=== PATIENT | male | born 1965 | race Caucasian/White ===

== ENCOUNTER 2019-06-18 13:33 | Inpatient (IN) | payer OTHER, SELFPAY ==
[2019-06-18] VITALS (9 sets, daily range): BP systolic 120–193; BP diastolic 82–118; PULSE 79–94; RESP 16–35; TEMP 36.3; O2SAT 98–100; BMI 25.9
--- NOTE | ~2019-06-18 | CT_ITS ---
EXAMINATION: CT brain wo con DATE: 06/22/2019 10:49 INDICATION: Altered mental status. TECHNIQUE: Computed tomography (CT) of the head was performed without intravenous contrast. Sagittal and coronal reconstructions were performed. The mA was adjusted according to patient size. Iterative reconstruction technique was employed. The dose-length product was 605.33 mGy-cm. COMPARISON: head CT dated 06/18/2019 FINDINGS: Small old lacunar infarcts at the left thalamus and left basal ganglia involving the head of the left caudate nucleus and anterior limb of the left internal capsule. No acute intracranial hemorrhage, ac [place] infarction or abnormal extra axial fluid collection. Ventricles are normal and symmetric. No mass /mass effect. Mild to moderate mucosal thickening throughout the paranasal sinuses most prominent in the bilateral ethmoid sinuses. The orbits and mastoid air cells are normal. IMPRESSION: 1. No acute intracranial process. 2. Unchanged old lacunar infarcts at the left thalamus and left basal ganglia. Reviewed, dictated and finalized at location A. ETING CONTENT SPECIALIST
--- NOTE | ~2019-06-18 | CT_ITS ---
EXAMINATION: CT brain wo con DATE: 06/18/2019 15:29 INDICATION: Altered mental status TECHNIQUE: Computed tomography (CT) of the head was performed without intravenous contrast. Sagittal and coronal reconstructions were performed. The mA was adjusted according to patient size. Iterative reconstruction technique was employed. The dose-length product was 605.33 mGy-cm. COMPARISON: None FINDINGS: Evaluation mildly limited at the skull base and posterior fossa due to some motion artifact. No acute intracranial hemorrhage, acute infarction or abnormal extra axial fluid collection. Old lacunar infa rcts in the left thalamus and basal ganglia involving the head of the left caudate nucleus and anteri or limb of the left internal capsule. Ventricles are normal and symmetric. No mass/mass effect. Mucos al thickening in the bilateral ethmoid sinuses. The orbits and mastoid air cells are normal. Intracra nial calcified cerebral atherosclerosis is noted. IMPRESSION: 1. No acute intracranial process. Evaluation mildly limited at the skull base and posterior fossa by some motion artifact. 2. Old lacunar infarcts at the left thalamus and left basal ganglia. Reviewed, dictated and finalized at location A. LINE TRUCK OPERATOR IMPRESSION: 1. No acute intracranial process. Evaluation mildly limited at the skull base a nd posterior fossa by some motion artifact. 2. Old lacunar infarcts at the left thalamus and left basal ganglia.
--- NOTE | ~2019-06-18 | US_ITS ---
EXAMINATION: US carotid duplex BI DATE: 06/19/2019 16:45 INDICATION: Altered mental status. Alcohol withdrawal. TECHNIQUE: Grayscale, color Doppler, and pulsed Doppler images of the cervical carotid arteries were obtained. The degree of vessel stenosis is placed in one of the following categories: normal, <50%, 5 0-69%, >=70% but less than near-occlusion, near-occlusion, or total occlusion. Note that percent sten osis relative to normal distal artery lumen diameter is indirectly measured from velocity measurement s as described by Ajay, et al. Radiology 2003; 229:340-346. Notes: Normal: Peak systolic velocity <125 centimeters/sec and no plaque <50%. Peak systolic velocity <125 ( EDV <40; ICA/CCA PSV ratio <2.0; used these factors only a tandem lesions or low cardiac output or co ntralateral disease) 50-69 %: PSV 125-230 (EDV 40-100; ratio 2-4) >= 70% but less than near occlusion: PSV greater than 230 (EDV > 100; ratio> 4.0) Near Occlusion: PSV that is variable; markedly narrowed lumen Occlusion: Absent flow on color/spectral Doppler and no lumen on bettencourt scale. COMPARISON: None. FINDINGS: RIGHT: The right common carotid artery (CCA) peak systolic velocity (PSV) is 75 cm/s. The right internal car otid artery (ICA) PSV is 141 cm/s. The right ICA end-diastolic velocity (EDV) is 32 cm/s. The right I CA/CCA PSV ratio is 1.9. The external carotid artery (ECA) PSV is 163 cm/s. There is antegrade flow i n the right vertebral artery. LEFT: The left CCA PSV is 122 cm/s. The left ICA PSV is 118 cm/s. The left ICA EDV is 24 cm/s. The left ICA /CCA PSV ratio is 1. The ECA PSV is 157 cm/s. There is antegrade flow in the left vertebral artery. IMPRESSION: 1. 50-69% stenosis in the right internal carotid artery by sonographic criteria. 2. Less than 50% stenosis in the left internal carotid artery by sonographic criteria. Reviewed, dictated and finalized at location A. DOCK OPERATOR IMPRESSION: 1. 50-69% stenosis in the right internal carotid artery by sonographic criteria . 2. Less than 50% stenosis in the left internal carotid artery by sonographic cr iteria.
--- NOTE | 2019-06-18 14:09 | ED.GENADULT ---
HPI - General Adult General Chief complaint: Altered Mental Status Stated complaint: AMS Time Seen by Provider: 06/18/19 13:43 Source: EMS and RN notes reviewed Mode of arrival: EMS Limitations: clinical condition History of Present Illness HPI narrative: A 54 y/o male presents to the ED via EMS from the [facility] d/t AMS. Per EMS, the pt had been in alf for the past 10 days but that 3 days ago the pt became nonverbal. They state that the pt has also been shaking more so they called EMS to have the pt evaluated. They report that the pt was responding to yes and no questions by shaking his head or nodding his head. They also note that the pt has a hx of substance abuse but is unsure of what substance. When the pt was asked any questions in the ED he just smiled and laughed. Onset (ago): day(s) (3) Associated symptoms: other (shaking more per EMS) Related Data Allergies Allergy/AdvReac Type Severity Reaction Status Date / Time No Known Allergies Allergy Verified 06/18/19 17:15 Review of Systems Review of Systems: All systems reviewed & are unremarkable except as noted in HPI and below ROS unobtainable: unobtainable due to mental status Neurologic: Reports tremor(s) (more per EMS) Psychiatric: Psychiatric: Reports other (has been nonverbal) [facility] Family History Family History (Updated 03/11/16 @ 23:21 by DOCTOR UNKNOWN) Father Hypertension Mother Patient's mother is in good health Sibling Patient's brother is in good health Social History Social History Alcohol intake: never Gender identity (if verbalized by the patient): Male Course Course Emergency Course: His work-up has been largely negative. His behavior is likely due to underlying psychopathology. I do not feel that I can fully rule out a medical cause for his condition, such as alcohol withdrawal. I will keep him for observation Consultations Consultation #1: Discussed case with Lisa (PA to Hospitalist). Accepts the pt. Date: 06/18/19 Time: 18:00 Vital Signs Vital signs: Vital Signs Temperature 36.3 C L 06/18/19 14:21 Pulse Rate 89 06/18/19 14:21 Respiratory Rate 16 06/18/19 14:21 Blood Pressure 178/110 H 06/18/19 14:21 Pulse Oximetry 98 06/18/19 14:21 Temperature 36.3 C L 06/18/19 14:21 Pulse Rate 88 06/18/19 18:00 Respiratory Rate 17 06/18/19 18:00 Blood Pressure 120/82 06/18/19 18:00 Pulse Oximetry 100 06/18/19 14:45 Medical Decision Making Vital Signs Vital Signs: Vital Signs Temperature 36.3 C L 06/18/19 14:21 Pulse Rate 89 06/18/19 14:21 Respiratory Rate 16 06/18/19 14:21 Blood Pressure 178/110 H 06/18/19 14:21 Pulse Oximetry 98 06/18/19 14:21 Temperature 36.3 C L 06/18/19 14:21 Pulse Rate 88 06/18/19 18:00 Respiratory Rate 17 06/18/19 18:00 Blood Pressure 120/82 06/18/19 18:00 Pulse Oximetry 100 06/18/19 14:45 Lab Data Result diagrams: 06/18/19 14:25 06/18/19 14:25 Labs: Lab Results 06/18/19 06/18/19 06/18/19 Range/Units 14:24 14:25 14:25 WBC 7.6 (4.5-10.0) K/mm3 RBC 5.96 (4.6-6.20) M/mm3 Hgb 16.5 (14.0-18.0) g/dL Hct 50.6 (42.0-52.0) % MCV 84.9 (80-100) fl MCH 27.7 (26-34) pg MCHC 32.6 (32-36) g/dl RDW 14.8 H (11.5-14.5) % Plt Count 211 (150-375) k/mm3 MPV 12.1 H (7.4-10.4) fl Immature Gran % (Auto) 0.3 (0-0.5) % Neut % (Auto) 71.5 (45.5-73.1) % Lymph % (Auto) 18.7 (18.3-44.2) % [place] % (Auto) 6.3 (2.6-8.5) % Eos % (Auto) 2.0 (0-4.4) % Baso % (Auto) 1.2 (0.2-1.2) % Lymph # (Auto) 1.43 (0.9-3.2) K/mm3 [place] # (Auto) 0.5 (0.1-0.6) K/mm3 Eos # (Auto) 0.2 (0-0.3) K/mm3 Baso # (Auto) 0.1 (0.0-0.1) K/mm3 Abs Immat Gran (auto) 0.02 (0.00-0.031) K/mm3 Absolute Neuts (auto) 5.5 (1.3-6.7) K/mm3 Absolute Nucleated RBC 0.0 (0.0-0.012) K/mm3 Nucleated RBC % 0.0 (0.0-0.2) % Sodium 140 (137-145) mmol
[2019-06-18 14:33] LABS: Basophils Absolute Auto 0.1 K/mm3 (0.0-0.1); Basophils Percent Auto 1.2 % (0.2-1.2); Eosinophils Absolute Auto 0.2 K/mm3 (0-0.3); Hematocrit 50.6 % (42.0-52.0); Hemoglobin 16.5 g/dL (14.0-18.0); Immature Granulocyte Absolute 0.02 K/mm3 (0.00-0.031); Immature Granulocyte Percent A 0.3 % (0-0.5); Lymphocytes Absolute Auto 1.43 K/mm3 (0.9-3.2); Lymphocytes Percent Auto 18.7 % (18.3-44.2); Mean Corpuscular HGB Conc 32.6 g/dl (32-36); Mean Corpuscular Hemoglobin 27.7 pg (26-34); Mean Corpuscular Volume 84.9 fl (80-100); Mean Platelet Volume 12.1 fl (7.4-10.4); Monocytes Absolute Auto 0.5 K/mm3 (0.1-0.6); Monocytes Percent Auto 6.3 % (2.6-8.5); Neutrophils Absolute Auto 5.5 K/mm3 (1.3-6.7); Neutrophils Percent Auto 71.5 % (45.5-73.1); Platelet Count Result 211 k/mm3 (150-375); Red Blood Count 5.96 M/mm3 (4.6-6.20); Red Cell Distribution Width 14.8 % (11.5-14.5); White Blood Count 7.6 K/mm3 (4.5-10.0)
[2019-06-18 14:43] LABS: Ammonia < 9 umol/L (9-30)
[2019-06-18 14:45] LABS: Ethanol < 10 mg/dL (<10)
[2019-06-18 14:48] LABS: Alanine Aminotransferase 31 U/L (4-50); Albumin Level 4.4 g/dL (3.5-5.1); Alkaline Phosphatase 68 U/L (38-126); Aspartate Amino Transferase 42 U/L (17-59); Bilirubin,Total 0.7 mg/dL (0.2-1.3); Blood Urea Nitrogen 25 mg/dL (9-20); Calcium 9.4 mg/dL (8.4-10.2); Carbon Dioxide 27 mmol/L (22-30); Chloride 104 mmol/L (98-107); Estimated Glomerular Filt Rate > 60; Glucose 91 mg/dL (75-110); Potassium 3.8 mmol/L (3.4-5.0); Sodium 140 mmol/L (137-145)
[2019-06-18] MEDS: LORAZEPAM INJ 2 MG/ML VIAL 1 MG IM (15:59)
--- NOTE | 2019-06-18 16:31 | ECG_ITS ---
Measurements Intervals [place] Rate: 92 P: 58 MI: 120 QRS: 12 QRSD: 94 T: 145 QT: 407 QTc: 504 Interpretive Statements SINUS RHYTHM POSSIBLE LEFT ATRIAL ENLARGEMENT LEFT VENTRICULAR HYPERTROPHY AND ST-T CHANGE ST-T WAVE ABNORMALITY IN ANTEROLAT/LAT LEADS- CONSIDER ISCHEMIA BASELINE ARTIFACT- I, II, AVR, AVL, AVF, V2 ABNORMAL ECG Electronically Signed On 06-18-2019 20:45:48 STRAW HAT BRIM RAISER OPERATOR by Thomas Easley D.O.
[2019-06-18] MEDS: SODIUM CHLORIDE 0.9% IV 2,000 ML 999 ML IV CONT (16:57)
[2019-06-18] MEDS: LORAZEPAM INJ 2 MG/ML VIAL 1 MG IV PUSH (16:59)
[2019-06-18] MEDS: HALOPERIDOL LACTATE 5 MG/ML VIAL IM (17:02)
[2019-06-18 17:24] LABS: Add Urine Microscopic? YES; Appearance Urine Clear (Clear); Bacteria Urine Trace /hpf; Bilirubin Urine Negative (Negative); Blood Urine 3+ (Negative); Color Urine Yellow (Yellow); Glucose Urine UA Negative (Negative); Ketones Urine 1+ mg/dL (Negative); Leukocyte Esterase Ur Negative LEU/UL (NEGATIVE); Mucus Urine Rare /lpf; Nitrate Urine Negative (Negative); Protein Urine Negative (Negative); Specific Grav Ur 1.023 (1.001-1.035); Squamous Epithelial Cell Urine Rare /hpf (Few); Urobilinogen Urine Negative mg/dL (<2.0); WBC Urine 0-3
[2019-06-18 17:36] LABS: Amphetamine Screen Urine Negative (Negative); Barbiturate Screen Urine Negative (Negative); Benzodiazepines Screen Urine Negative (Negative); Cannabinoid Screen Urine Negative (Negative); Cocaine Screen Urine Negative (Negative); Methadone Screen Urine Negative (Negative); Opiate Screen Urine Negative (Negative); Phencyclidine Screen Urine Negative (Negative)
[2019-06-19] VITALS (13 sets, daily range): BP systolic 157–176; BP diastolic 75–94; PULSE 82–101; RESP 16–18; TEMP 36.3–37; O2SAT 96–98
[2019-06-19] MEDS: LACTATED RINGERS 1,000 ML 125 ML IV CONT ×4 (02:32→21:04)
[2019-06-19] MEDS: METOPROLOL TARTRATE INJ 5 MG/5 ML VIAL IV PUSH ×2 (08:38→23:25)
[2019-06-19] MEDS: LORAZEPAM INJ 2 MG/ML VIAL 1 MG IV PUSH ×3 (12:01→23:21)
--- NOTE | 2019-06-19 13:40 | PC.NURSE ---
Care Coordination provided us with two numbers for possible contact; mother and son. I called the mother @ [phone] to possibly obtain consent for a MRI. She stated that she does not have contact with him, but could provide me with a little information if needed. We did not obtain consent for MRI; will try to call the son. She stated that he may have a still, but does not know if they are yet or not. She may be someone who we can contact? The mother said that he has been dealing with mental issues for quite sometime now, but doesn't recall how long. The patient has suffered from two family members losses in 2011; father and brother. The patient does have 2 children; son and daughter, whom is not in his life because the patient tried to take her child recently. This is the information that I could obtain from the mother. She would like to be contacted if something were to happen to her son. Mother= Anu Greco [phone]
--- NOTE | 2019-06-19 14:44 | PM.IMHP ---
H&P: HPI History of Present Illness Chief complaint: ALTER MENTAL STATUS,POSSIBLE ALCOHOL WITHDRAWL Narrative: Bala Greco is a 54 year old male -patient has been admitted to the hospital from the [facility]. patient has been there for 10 days, they noticed, patient had a problem with his speech for 3 days ago. Currently patient is unable to speak, non verbal, and has a weakness on his right arm and right leg. Difficult to obtain a history. Patient does communicate by nodding. Some remote history of substance abuse and alcoholism. Patient did have a CT scan in the emergency room which showed some old lacunar infarct. Awaiting MRI of brain and neurology consultation. Review of Systems Review of Systems: All systems reviewed & are unremarkable except as noted in HPI and below ROS unobtainable: unobtainable due to mental status Neurologic: Reports Abnormal speech present and Reports focal weakness Psychiatric: Comments: History of alcoholism and drug abuse [facility] Family History Family History Father Hypertension Mother Patient's mother is in good health Sibling Patient's brother is in good health Social History Social History Smoking status: Unknown if ever smoked Alcohol intake: unknown Substance use: unknown Substance use type: other Gender identity (if verbalized by the patient): Male Spiritual care concerns: No Agree to blood products: No Meds Home Medications and Allergies Home Medications Medication Instructions Recorded Confirmed Type Unable to Obtain Home Medications 06/18/19 06/18/19 History Allergies Allergy/AdvReac Type Severity Reaction Status Date / Time No Known Allergies Allergy Verified 06/18/19 17:15 Vital Signs Vital Signs - 24 hr 06/18/19 14:45 06/18/19 15:45 06/18/19 16:45 Temperature Pulse Rate 86 83 94 Pulse Rate [Left Radial] Respiratory Rate 16 35 H 23 H Blood Pressure 193/118 H 184/109 H 179/117 H Pulse Oximetry 100 06/18/19 18:00 06/18/19 19:08 06/18/19 19:42 Temperature Pulse Rate 88 86 94 Pulse Rate [Left Radial] Respiratory Rate 17 16 16 Blood Pressure 120/82 179/99 H 145/93 H Pulse Oximetry 06/18/19 20:00 06/18/19 20:07 06/19/19 00:00 Temperature Pulse Rate 79 92 Pulse Rate [Left Radial] Respiratory Rate Blood Pressure 183/113 H Pulse Oximetry 06/19/19 04:00 06/19/19 08:00 06/19/19 08:35 Temperature 36.3 C L Pulse Rate 91 90 95 Pulse Rate [Left Radial] 90 Respiratory Rate 18 Blood Pressure 176/91 H Pulse Oximetry 97 06/19/19 08:38 06/19/19 10:03 Temperature Pulse Rate 90 Pulse Rate [Left Radial] Respiratory Rate Blood Pressure 165/86 H Pulse Oximetry Exam Const: Nutritional Appearance: well nourished Other: Unkempt HENMT: Head: normocephalic Eyes: General: appearance normal, both eyes and all related structures Pupils: PERRL Neck: Neck: supple Chest: Chest palpation & inspection: normal inspection of the chest Resp: Effort & Inspection: normal respiratory effort Auscultation: clear to auscultation bilaterally Cardio: Jugular venous distension: no JVD Rhythm: regular rhythm Heart sounds: S1 normal and S2 normal GI: Inspection: normal to inspection Palpation (GI): No abdominal tenderness, Yes soft and No tender Auscultation: normal bowel sounds : General: Yes no CVA tenderness Back/Spine/Pelvis: Back: no CVA tenderness Skin: General skin exam: normal color and dry skin Neuro: Cranial nerves: Yes PERRL Cognition (Neuro): abnormal cognition Speech: speech abnormal Motor exam (neuro): strength abnormal Other: 3/5 weakness on the right arm and right leg Extrem: General: normal to inspection Psych: Appearance: well kempt and disheveled Speech and movement: mute Affect: anxious affect and blun
--- NOTE | 2019-06-19 23:10 | PC.NURSE ---
Bed alarming. Getting out of bed unassisted. Agitated and suspicious of all nursing staff and surroundings. Unable to reorient. Stated, Get a gun, I will kill myself. Just kill me. Hitting mattress and side rail. Pulling at hair. Time spent at bedside.
--- NOTE | 2019-06-19 23:50 | PC.NURSE ---
Roberta, Commercial Door Installer, notified per telephone of order to transfer to ICU.
[2019-06-20] VITALS (15 sets, daily range): BP systolic 144–200; BP diastolic 82–109; PULSE 64–92; RESP 16–20; TEMP 36.8–37; O2SAT 98–100
--- NOTE | 2019-06-20 00:54 | PC.NURSE ---
Transferred to ICU 4 per hospital bed accompanied by 3 Nurses and 1 STRAPPING MACHINE OPERATOR.
--- NOTE | 2019-06-20 01:00 | PC.NURSE ---
PATIENT TRANSFERRED TO ICU 4 FOR SI PRECAUTIONS, BECAME VERY AGGRESSIVE WHILE TRYING TO APPLY TELE MONTIOR. CODE PURPLE CALLED, AND 5MG HALDOL IVP GIVEN. PATIENT AGREED TO SIT AT BEDSIDE TO EAT SOME FOOD, BUT WILL NOT ALLOW MONTIOR AT THIS TIME. NURSE AND SITTER IN ROOM TO MONITOR
[2019-06-20] MEDS: HALOPERIDOL LACTATE 5 MG/ML VIAL IV PUSH (01:15)
--- NOTE | 2019-06-20 01:17 | PC.NURSE ---
This patient, Bala Greco, was received from [ [phone]] on 06/20/19 at 0050. Personal belongings list checked and signed. Patient/family oriented to unit policies and routines
[2019-06-20] MEDS: ACETAMINOPHEN 325 MG TABLET 650 MG PO (02:20)
--- NOTE | 2019-06-20 04:20 | PC.NURSE ---
Nikita called RN to room, patient thrashing and aggitated and IV pulled out. Patient wants personal belongings at his bedside, mad at the RN states You are a bitch and a cunt. Patient wanted to use urinal, gave him the urinal and then patient did not want nurse to empty urine. Patient very distrustful. Patient will not let RN try for a new IV at this time, patient went back to sleep. Dr Coronado aware.
[2019-06-20] MEDS: HALOPERIDOL LACTATE 5 MG/ML VIAL 10 MG IM (06:04)
[2019-06-20] MEDS: LACTATED RINGERS 1,000 ML 125 ML IV CONT ×2 (07:29→15:18)
--- NOTE | 2019-06-20 11:10 | PCSTNOTE ---
Patient unavailable for evaluation per nursing; patient was agitated and combative during the night. ST will attempt at further date to complete evaluation.
--- NOTE | 2019-06-20 11:54 | PCPTNOTE ---
Spoke w/ Dr Velasquez regarding pt's change in medical status and transfer to ICU. She stated to continue therapy.
[2019-06-20 12:25] LABS: Cholesterol 117 mg/dL (0-200); HDL Direct 29 mg/dL; Triglycerides 96 mg/dL (<150)
[2019-06-20 12:36] LABS: LDL Cholesterol Direct 75 mg/dL
[2019-06-20] MEDS: ATORVASTATIN 40 MG TABLET PO (12:51)
[2019-06-20] MEDS: ASPIRIN 325 MG TABLET BY MOUTH (12:51)
--- NOTE | 2019-06-20 14:16 | PCPTNOTE ---
Attempted PT/OT evals. Pt refused therapy. States he does not want any therapy.
--- NOTE | 2019-06-20 15:11 | PM.IMPN ---
Progress Note: A&P Assessment and Plan (1) Altered mental status: Qualifiers: Altered mental status type: unspecified Qualified Code(s): R41.82 - Altered mental status, unspecified Code(s): R41.82 - Altered mental status, unspecified Status: Acute Assessment and Plan: Patient admitted from [facility], for disturbance in speech for the past 3 days. Patient is unable to hold any conversation. possible stroke, patient had CT, awaiting full stroke workup, MRI and echocardiogram ultrasound of carotids. patient also to have neurology consultation, patient is started on full-dose aspirin. Pt unable to do MRI. some mention of suicidal intention transferred to ICU last night (2) Hemiparesis: Code(s): G81.90 - Hemiplegia, unspecified affecting unspecified side Status: Resolved Assessment and Plan: Much improved appears to have no deficit anymore (3) Mute: Code(s): R47.01 - Aphasia Status: Acute Assessment and Plan: Patient have to speech and swallow assessment. patient is tolerating a diet at the moment without any problems of choking, DC iv fluids, speech is still impaired awaiting full spech evaluation (4) History of alcohol abuse: Code(s): F10.11 - Alcohol abuse, in remission Status: Acute Assessment and Plan: Chronic history of alcoholism. watch for any withdrawal patient have IV Ativan for agitation p.r.n. (5) History of substance abuse: Code(s): F19.11 - Other psychoactive substance abuse, in remission Status: Acute Assessment and Plan: Patient's urine drug screen is negative Subjective Interval history: Pt admitted from [facility]. Pt has been having problems with speech for 4 days now, appears to have some expressive dysphasia unable to answer questions, prefers short replies. pt unable to have MRI brain, Pt had CT brain. Pt weakness in arm and leg appears much improved. Speech still appears to be a concern. Pt seeing neurology and speech theraphy. Transfered to ICU due to some suicidal intention- last night Review of Systems Review of Systems: All systems reviewed & are unremarkable except as noted in HPI and below ROS unobtainable: unobtainable due to mental status Neurologic: Reports Abnormal speech present and Reports focal weakness Exam Narrative: Exam Narrative: Unkempt Objective Data Vital Signs Vital Signs: Vital Signs - 24 hr 06/19/19 16:00 06/19/19 17:08 06/19/19 20:00 Temperature Pulse Rate 82 85 Pulse Rate [Left Radial] 82 85 Respiratory Rate Blood Pressure 157/75 H Pulse Oximetry 06/19/19 22:00 06/19/19 23:25 06/20/19 00:00 Temperature 37.0 C Pulse Rate 88 82 67 Pulse Rate [Left Radial] Respiratory Rate 16 Blood Pressure 164/94 H Pulse Oximetry 96 06/20/19 01:27 06/20/19 01:40 06/20/19 02:00 Temperature 36.8 C Pulse Rate 74 72 74 Pulse Rate [Left Radial] Respiratory Rate 20 20 20 Blood Pressure 166/98 H 158/92 H Pulse Oximetry 100 100 06/20/19 04:00 06/20/19 04:16 06/20/19 04:17 Temperature 37.0 C Pulse Rate 86 70 Pulse Rate [Left Radial] 70 Respiratory Rate 17 Blood Pressure 144/82 H Pulse Oximetry 06/20/19 06:00 06/20/19 08:00 06/20/19 10:00 Temperature 36.9 C Pulse Rate 65 65 64 Pulse Rate [Left Radial] Respiratory Rate 18 17 17 Blood Pressure 156/90 H 179/104 H 144/99 H Pulse Oximetry 06/20/19 12:00 06/20/19 14:00 Temperature Pulse Rate 70 92 Pulse Rate [Left Radial] 70 Respiratory Rate Blood Pressure 154/101 H Pulse Oximetry Intake/Output Intake/Output: Intake & Output 06/17/19 06/18/19 06/19/19 06/20/19 23:59 23:59 23:59 23:59 Intake Total 1999 3960 2720 Output Total 700 2750 Balance 1999 3260 -30 Meds/Results Medications: Active Medications Generic Name Dose Route Start Last Admin Trade Name Freq PRN Reason Stop Dose A
--- NOTE | 2019-06-20 15:21 | CONS_ITS ---
DATE OF CONSULTATION: Patient of Dr. Verna Livingston. HISTORY: This 54 years old has been admitted to [facility] through the emergency room for the complaint of change in the mental status with the possibility of the alcohol withdrawal, on transfer from the [facility] [place] where he had been for the last 10 days, but reportedly, he had problem with speech. When the patient was initially seen by the hospital, he was unable to speak, nonverbal, and was noted to have weakness on right arm and right lower extremity and was communicating only by nodding; remote history of substance abuse and alcohol, and a CT scan in the emergency room revealing only old lacunar infarct. No other particular history was available. He was not taking any specific medication. On initial evaluation, he was afebrile with pulse of 86, respirations 16, blood pressure 193/118, which subsequently gradually came down to 179/117. He was notedly afebrile. Head was normocephalic. Ears, nose, throat examination was normal. Neck was supple with no meningeal signs. Heart was regular with no murmur. Lungs were clear to auscultation. Abdomen was soft with no organomegaly. Neurologically, he was noted to have 3/5 weakness in the right upper extremity. Subsequent evaluation included the BMP, which was normal so as the hepatic enzymes, UA. He was admitted to the hospital with the diagnosis of change in the mental status and hemiplegia on the right side, in addition to the history of alcohol abuse, chronic history of alcoholism, substance abuse. Initial evaluation included CBC with WBC 7.6, hemoglobin 16.5, and the platelet count of 211. Sodium 140, potassium 3.8, chloride 104, CO2 of 27, BUN 25, creatinine 1.0, GFR more than 60, glucose 91, calcium 9.4, total bilirubin 0.7, AST 42, ALT 31, alkaline phos 68, serum ammonia level less than 9, total protein 8, albumin 4.4. TSH 1.62. UA completely normal, 1+ ketone, 3+ blood, and 3 to 5 RBCs. Toxicology screen was negative for the opiates, methadone, barbiturates, phencyclidine, amphetamine, benzodiazepine, cocaine, cannabinoid, and alcohol level was were less than 10. Initial head CT scan was negative for the bleed. There were old lacunar infarcts in the left thalamus and left basal ganglia. The Doppler study of the carotid was 50% to 69% stenosis in the right internal carotid artery by sonographic and less than 50% on the left. On examination today, he was arousable, but sleeping, not cooperating with the examination. Pupils were round, regular. Glaser of vision could not be reliably checked. Face symmetrical. He was able to move both upper extremities. At this stage, the plan is to obtain the MRI of the brain and repeat examination, further instructions accordingly, and also obtain the CTA. Hernando I MT: Efrem
[2019-06-20] MEDS: METOPROLOL TARTRATE INJ 5 MG/5 ML VIAL IV PUSH (19:57)
[2019-06-20] MEDS: hydrALAZINE HCL 20 MG/ML VIAL 10 MG IV PUSH (21:26)
[2019-06-20] MEDS: LORAZEPAM INJ 2 MG/ML VIAL 1 MG IV PUSH (22:58)
[2019-06-21] VITALS (10 sets, daily range): BP systolic 126–199; BP diastolic 84–118; PULSE 84–91; RESP 16–21; TEMP 36.6–36.8; O2SAT 97–100
[2019-06-21 07:59] LABS: Hematocrit 47.4 % (42.0-52.0); Hemoglobin 15.7 g/dL (14.0-18.0); Mean Corpuscular HGB Conc 33.1 g/dl (32-36); Mean Corpuscular Hemoglobin 27.8 pg (26-34); Mean Platelet Volume 12.3 fl (7.4-10.4); Platelet Count Result 181 k/mm3 (150-375); Red Blood Count 5.64 M/mm3 (4.6-6.20); Red Cell Distribution Width 14.8 % (11.5-14.5); White Blood Count 7.9 K/mm3 (4.5-10.0)
[2019-06-21 08:29] LABS: Blood Urea Nitrogen 12 mg/dL (9-20); Calcium 8.6 mg/dL (8.4-10.2); Carbon Dioxide 27 mmol/L (22-30); Chloride 106 mmol/L (98-107); Estimated CRCL calculation 76 ml/min; Estimated Glomerular Filt Rate > 60; Glucose 95 mg/dL (75-110); Potassium 3.6 mmol/L (3.4-5.0); Sodium 140 mmol/L (137-145)
--- NOTE | 2019-06-21 09:17 | PCSTNOTE ---
Attempted to see pt for a communication evaluation. RN stated that pt is not able at this time as he is being uncooperative. RN stated that pt is appearing to swallow without difficulty. ST will attempt again if possible tomorrow 06-22-19.
--- NOTE | 2019-06-21 15:28 | PM.IMPN ---
Progress Note: A&P Assessment and Plan (1) Altered mental status: Qualifiers: Altered mental status type: unspecified Qualified Code(s): R41.82 - Altered mental status, unspecified Code(s): R41.82 - Altered mental status, unspecified Status: Acute Assessment and Plan: Patient admitted from [facility], for disturbance in speech for the past 3 days. Patient is unable to hold any conversation. possible stroke, patient had CT, awaiting full stroke workup, MRI and echocardiogram ultrasound of carotids. patient also had neurology consultation, patient is started on full-dose aspirin. Pt unable to do MRI as checklist is difficult to complete. some mention of suicidal and agitation intention transferred to ICU 2 days ago. patient have CTA of brain awaiting results. once medically stable can have crisis team to evaluate patient. (2) Hemiparesis: Code(s): G81.90 - Hemiplegia, unspecified affecting unspecified side Status: Resolved Assessment and Plan: Much improved appears to have no deficit anymore (3) Mute: Code(s): R47.01 - Aphasia Status: Acute Assessment and Plan: Patient have to speech and swallow assessment. patient is tolerating a diet at the moment without any problems of choking, DC iv fluids, speech is still impaired awaiting full spech evaluation (4) History of alcohol abuse: Code(s): F10.11 - Alcohol abuse, in remission Status: Acute Assessment and Plan: Chronic history of alcoholism. watch for any withdrawal patient have IV Ativan for agitation p.r.n. (5) History of substance abuse: Code(s): F19.11 - Other psychoactive substance abuse, in remission Status: Acute Assessment and Plan: Patient's urine drug screen is negative (6) Elevated blood pressure reading: Code(s): R03.0 - Elevated blood-pressure reading, without diagnosis of hypertension Status: Acute Assessment and Plan: Patient to start on blood pressure medication. patient does not have any family. unable to give a good history. unsure if he has a history of hypertension. but will start a antihypertensive as blood pressure is 160/114 Subjective Interval history: Pt admitted from [facility]. Pt has been having problems with speech for 4 days now, appears to have some expressive dysphasia unable to answer questions, prefers short replies. pt unable to have MRI brain, Pt had CT brain. Pt weakness in arm and leg appears much improved. Speech still appears to be a concern. Pt seeing neurology and speech theraphy. Transfered to ICU due to some suicidal intention- last night. patient still mumbling. CTA ordered as per Neurology. otherwise no complaints from the patient. Patient's blood pressure is running very high. Patient have blood pressure control today. Once medically stable can have crisis come and see patient. Review of Systems Review of Systems: All systems reviewed & are unremarkable except as noted in HPI and below ROS unobtainable: unobtainable due to mental status Neurologic: Reports Abnormal speech present Exam Narrative: Exam Narrative: Unkempt Const: Nutritional Appearance: well nourished Other: Unkempt HENMT: Head: normocephalic Other: Unkempt Eyes: General: appearance normal, both eyes and all related structures Pupils: PERRL Chest: Chest palpation & inspection: normal inspection of the chest Resp: Effort & Inspection: normal respiratory effort Auscultation: clear to auscultation bilaterally Cardio: Rhythm: regular rhythm Heart sounds: S1 normal and S2 normal GI: Inspection: normal to inspection Palpation (GI): No abdominal tenderness, Yes soft and No tender Auscultation: normal bowel sounds Skin: General skin exam: normal color and dry skin Neuro: Cranial nerves: Yes PERRL Cognition (Neuro): abnormal cognition Speech: speech abnormal Motor exam (neuro): s
[2019-06-21] MEDS: METOPROLOL TARTRATE INJ 5 MG/5 ML VIAL IV PUSH (20:33)
[2019-06-21] MEDS: LORAZEPAM INJ 2 MG/ML VIAL 1 MG IV PUSH (20:34)
[2019-06-21] MEDS: HALOPERIDOL LACTATE 5 MG/ML VIAL 10 MG IM (23:16)
[2019-06-22] VITALS: PULSE 84
[2019-06-22] MEDS: LORAZEPAM INJ 2 MG/ML VIAL 1 MG IV PUSH ×3 (01:22→23:52)
[2019-06-22 04:00] VITALS: PULSE 82
[2019-06-22 08:00] VITALS: BP 180/112; PULSE 88; RESP 18; TEMP 36.8; O2SAT 97
[2019-06-22] MEDS: ATORVASTATIN 40 MG TABLET PO (08:07)
[2019-06-22] MEDS: ASPIRIN 325 MG TABLET BY MOUTH (08:07)
--- NOTE | 2019-06-22 09:16 | PM.IMPN ---
Progress Note: A&P Assessment and Plan (1) Altered mental status: Qualifiers: Altered mental status type: unspecified Qualified Code(s): R41.82 - Altered mental status, unspecified Code(s): R41.82 - Altered mental status, unspecified Status: Acute Assessment and Plan: Exact baseline status unknown. Patient not fully oriented at this time. Neurology consulted and appreciate input. 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 Have been attempting to get MRI as well as CTA neck but unable given unreliable information from patient. Instead, repeat CT scan ordered today with no changes. Evaluated by speech therapy today with no specific difficulties noted. He has been tolerating diet. Agitated at times. Still requiring IV lorazepam as well as Haldol as needed. Dose of IM Zyprexa given this evening. Will continue to monitor. (2) Hypertension: Qualifiers: Hypertension type: essential hypertension Qualified Code(s): I10 - Essential (primary) hypertension Code(s): I10 - Essential (primary) hypertension Status: Acute Assessment and Plan: Past medical history unreliable but all blood pressures are elevated on review on 06/22/2019. Current on oral amlodipine and IV metoprolol q.6h hours. Will increase amlodipine. Will continue to monitor. Hopefully, can transition to oral metoprolol in a.m.. Continue IV hydralazine as needed. (3) Hemiparesis: Qualifiers: Hemiparesis etiology: unspecified Hemiparesis laterality: unspecified Qualified Code(s): G81.90 - Hemiplegia, unspecified affecting unspecified side Code(s): G81.90 - Hemiplegia, unspecified affecting unspecified side Status: Resolved Assessment and Plan: Noted to have weakness in the right arm and right leg on presentation. Moving all extremities equal at this time. CT brain x2 with no acute changes. (4) History of alcohol abuse: Code(s): F10.11 - Alcohol abuse, in remission Status: Acute Assessment and Plan: Reported history but had been at [facility] long-term for 10 days prior to presentation. No sign of withdrawal at this time. Will stop CIWA. (5) History of substance abuse: Code(s): F19.11 - Other psychoactive substance abuse, in remission Status: Acute Assessment and Plan: Reported history. Toxicology screen negative on arrival. (6) DVT prophylaxis: Code(s): Z29.9 - Encounter for prophylactic measures, unspecified Status: Acute Assessment and Plan: SCDs. Time Spent With Patient Time with patient: 15 - 25 minutes Subjective Interval history: Date of Service: 06/22/2019. Admitted with altered mental status. Patient resting but easily aroused. Denies headaches. No chest pain or palpitations. No shortness of breath. No abdominal pain. No nausea or vomiting. Denies suicidal or homicidal ideation. Review of Systems Constitutional: Constitutional: Denies fever(s) ENT: Reports system reviewed and no additional complaints, except as documented Cardiovascular: Cardiovascular: Denies chest pain and Denies palpitations Respiratory: Respiratory: Denies cough and Denies dyspnea Gastrointestinal: Gastrointestinal: Denies abdominal pain, Denies nausea and Denies vomiting Musculoskeletal: Musculoskeletal: Denies back pain Neurologic: Denies headache(s) Psychiatric: Psychiatric: Reports confusion Exam Const: General: no acute distress HENMT: Mouth: Yes moist mucous membranes Neck: Neck: supple Lymphatic: lymphadenopathy not noted Resp: Auscultation: clear to auscultation bilaterally, no rales and no wheezes Cardio: Rate: regular rate Rhythm: regular rhythm GI: Inspection: non-distended Palpation (GI): Yes soft and No tender Auscultation: normal bowel sounds Skin: Other: Multiple tattoos Extrem: General: no edema Other: Or
--- NOTE | 2019-06-22 09:50 | PC.NURSE ---
Patient more alert this morning upon examination and medication pass. Attempted to perform screenings and consent for MRI and CTA, upon doing said screenings patient became less cooperative and unreliable in his answers. Dr. Livingston, MRI, and CT notified of this. Dr. Livingston to adjust orders later today.
[2019-06-22] MEDS: AMLODIPINE BESYLATE 5 MG TABLET PO (10:10)
[2019-06-22 15:35] VITALS: BP 154/110; PULSE 90; RESP 16; TEMP 36.8
[2019-06-22 15:39] VITALS: PULSE 80
[2019-06-22] MEDS: hydrALAZINE HCL 20 MG/ML VIAL 10 MG IV PUSH (15:55)
[2019-06-22] MEDS: HALOPERIDOL LACTATE 5 MG/ML VIAL 10 MG IM (17:00)
[2019-06-22 20:00] VITALS: PULSE 80; RESP 20; O2SAT 99
--- NOTE | 2019-06-22 21:56 | PM.EVENT ---
Event Note Event Note: CODE PURPLE NOTE This is a 54 year old male who is currently being treated for acute Encephalopathy and tonight suddenly got out of bed and began wandering out of the ICU. The patient walked to the IMU where a Code Karon was called. The patient required to be redirected back to his room multiple times and appeared uncooperative multiple times. Zyprexa IM was ordered.
[2019-06-22] MEDS: OLANZapine 10 MG INJ VIAL IM (22:12)
--- NOTE | 2019-06-22 22:38 | PC.NURSE ---
At 2129, patient became agitated and walked out of the ICU with this RN and patient tech following him. Refuses to return to room. Patient ambulated to [facility] and a jaylon cortes was called. Security, nursing refractory products supervisor Bria Rosenthal and Dr. Millan responded along with several RNs. Patient eventually walked back to his ICU room. Zyprexa 10mg IM given for agitation. Advised patient to remain in bed as the Zyprexa might cause dizziness and fall risk. Sitter remains at bedside.
--- NOTE | 2019-06-22 23:54 | PC.NURSE ---
Patient again agitated and attempting to leave the ICU. Sarita cortes called with response from security, specimen technician, house keeping and nursing line supervisor. IV to left hand is occluded. Bria Rosenthal started a new IV to left forearm without difficulty. Ativan 1mg IVP given for agitation.
[2019-06-23] VITALS (11 sets, daily range): BP systolic 104–162; BP diastolic 71–100; PULSE 64–96; RESP 12–22; TEMP 35.9–37.1; O2SAT 94–100
--- NOTE | 2019-06-23 01:57 | PC.NURSE ---
0100 Patient again walking out of the room wanting to leave. Dr. Millan notified, orders for a Precedex drip. Monty Burgos contacted Dr. Vail for ICU transfer.
--- NOTE | 2019-06-23 01:59 | PC.NURSE ---
0130 Precedex bolus and drip started. Patient is currently sleeping. Placed back on the monitor with continuous pulse ox.
[2019-06-23 06:28] LABS: Hematocrit 45.1 % (42.0-52.0); Hemoglobin 14.7 g/dL (14.0-18.0); Mean Corpuscular HGB Conc 32.6 g/dl (32-36); Mean Corpuscular Hemoglobin 27.5 pg (26-34); Mean Corpuscular Volume 84.3 fl (80-100); Mean Platelet Volume 11.8 fl (7.4-10.4); Platelet Count Result 181 k/mm3 (150-375); Red Blood Count 5.35 M/mm3 (4.6-6.20); Red Cell Distribution Width 14.9 % (11.5-14.5); White Blood Count 7.9 K/mm3 (4.5-10.0)
[2019-06-23 06:43] LABS: Blood Urea Nitrogen 16 mg/dL (9-20); Calcium 8.7 mg/dL (8.4-10.2); Carbon Dioxide 25 mmol/L (22-30); Chloride 105 mmol/L (98-107); Estimated CRCL calculation 68 ml/min; Estimated Glomerular Filt Rate > 60; Glucose 90 mg/dL (75-110); Magnesium 2.1 mg/dL (1.6-2.3); Potassium 3.4 mmol/L (3.4-5.0); Sodium 140 mmol/L (137-145)
--- NOTE | 2019-06-23 08:22 | PM.IMPN ---
Progress Note: A&P Assessment and Plan (1) Suicidal ideation: Code(s): R45.851 - Suicidal ideations Status: Acute Assessment and Plan: Patient transferred ICU very early on 06/20/19 after issues just before midnight on 06/19/19 during which time he told nurse Get a gun, I will kill myself. Just kill me. . Now denies suicidal thoughts having denied to me yesterday and today. Medically stable. Will transfer to medical floor status once again. Continue suicide precautions. Will need crisis evaluation. (2) Altered mental status: Qualifiers: Altered mental status type: unspecified Qualified Code(s): R41.82 - Altered mental status, unspecified Code(s): R41.82 - Altered mental status, unspecified Status: Acute Assessment and Plan: Exact baseline status unknown but appears to be at baseline now with patient able to get up on his own. Neurology consulted and appreciate input. 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 Attempted to get MRI as well as CTA neck but unable given unreliable information from patient. Instead, repeat CT scan completed on 06/22/2019 with no changes. Evaluated by speech therapy on 06/22/2019 with no specific difficulties noted. He has been tolerating diet. Still has IV lorazepam as well as Haldol available as needed. Will continue to monitor. (3) Hypertension: Qualifiers: Hypertension type: essential hypertension Qualified Code(s): I10 - Essential (primary) hypertension Code(s): I10 - Essential (primary) hypertension Status: Acute Assessment and Plan: Past medical history unreliable but feel most likely does have hypertension based on readings here. Blood pressure reviewed on 06/23/2019 better this morning but was sedated overnight. Other blood pressure readings have all been significantly elevated. Will continue amlodipine. Will transition from IV metoprolol to oral metoprolol. Will continue to monitor. IV hydralazine available as needed. Will adjust treatment as needed.. (4) Hemiparesis: Qualifiers: Hemiparesis etiology: unspecified Hemiparesis laterality: unspecified Qualified Code(s): G81.90 - Hemiplegia, unspecified affecting unspecified side Code(s): G81.90 - Hemiplegia, unspecified affecting unspecified side Status: Resolved Assessment and Plan: Noted to have weakness in the right arm and right leg on presentation. No deficit at this time. CT brain x2 with no acute changes. (5) History of alcohol abuse: Code(s): F10.11 - Alcohol abuse, in remission Status: Acute Assessment and Plan: Reported history but had been at [facility] for 10 days prior to presentation. No sign of withdrawal at this time. (6) History of substance abuse: Code(s): F19.11 - Other psychoactive substance abuse, in remission Status: Acute Assessment and Plan: Reported history. Toxicology screen negative on arrival. (7) DVT prophylaxis: Code(s): Z29.9 - Encounter for prophylactic measures, unspecified Status: Acute Assessment and Plan: SCDs. Time Spent With Patient Time with patient: 15 - 25 minutes Subjective Interval history: Date of Service: 06/23/2019. Admitted with altered mental status from [facility].. Patient is sleeping. I was able to awaken him. He states he just wants to be left alone. Patient was out wandering in the intermediate care unit last evening with Code Karon called. He did require IM Zyprexa in addition to Haldol and Ativan last night. He subsequently placed on a Precedex drip overnight. Has been off Precedex since earlier this morning. No chest pain or shortness of breath. No abdominal pain. Expressed some suicidal thoughts while on the medical floor late on 06/19/2019. Denies any suicidal thoughts today. Review of Systems Constitutional: C
--- NOTE | 2019-06-23 08:38 | WPDCNINT ---
Assessment and Plan Assessment and plan (1) Agitation: Code(s): R45.1 - Restlessness and agitation Status: Acute Assessment and Plan: patient was agitated overnight with a Code Purple, requiring Precedex infusion was converted to an ICU admission - patient currently calm and follows simple commands, does not answer to questions (2) Altered mental status: Qualifiers: Altered mental status type: unspecified Qualified Code(s): R41.82 - Altered mental status, unspecified Code(s): R41.82 - Altered mental status, unspecified Status: Acute Assessment and Plan: patient is baseline mental status is unknown. Urology has been following the patient. Patient is had to CT scan which shows old lacunar infarcts at the left thalamus and left basal ganglia. Patient was to get a MRI has been less CTA neck but was unable given unreliable information from the patient. Repeat CT scan on 06/22/2019 with no changes. Evaluated by speech therapy on 06/22/2019 with no specific difficulties noted. He has been tolerating diet. Still has IV lorazepam as well as Haldol available as needed. Will continue to monitor. (3) Suicidal ideation: Code(s): R45.851 - Suicidal ideations Status: Acute Assessment and Plan: Patient was transferred to ICU on 06/20/2019 in the early hours as he told the nurse Get a gun, I will kill myself. Just kill me. according the records patient denying suicidal thought. Patient be transferred to medical floor status once again as he is medically stable and off Precedex infusion. - Continue suicide precautions and bedside sitter - crisis management to evaluate the patient (4) Hypertension: Qualifiers: Hypertension type: essential hypertension Qualified Code(s): I10 - Essential (primary) hypertension Code(s): I10 - Essential (primary) hypertension Status: Acute Assessment and Plan: blood pressures have been currently stable, but according to the in records patient has had elevated blood pressures - continue amlodipine and metoprolol. - p.r.n. hydralazine (5) DVT prophylaxis: Code(s): Z29.9 - Encounter for prophylactic measures, unspecified Status: Acute Assessment and Plan: SCDs Consult date: 06/23/19 Time Seen: 06:34 HPI: CHIEF COMPLAINT: AGITATION REQUIRING PRECEDEX Bala Greco is a 54 year old male who presented the ED on 06/18/2019 from the [facility] due to altered mental status. Patient has been at the assisted for 10 days prior to admission, he days prior to admission the patient became nonverbal. They also noted some shaking and EMS was called and patient was brought to the ED. Patient has had a history of substance abuse. CT scan of the brain showed old lacunar infarcts. On 06/19/2019 patient had some suicidal thoughts and was transfer the ICU as a medical patient for close monitoring in the ICU. During the course of his stay patient has been awake, easily aroused and denies any suicidal or homicidal ideation according the Records. On 06/22/2019 patient was found wandering out of the ICU and walk to the IMU where Sarita Brantley was called. Patient was redirected to his room multiple times and appeared uncooperative. He did receive multiple doses of Ativan, Zyprexa IM, was started on Precedex infusion, patient was transferred to ICU status. Patient seen examined this morning. Off the Precedex infusion. Patient is pretty somnolent, barely opens his eyes. patient did follow commands but did not answer any questions. Review of Systems Review of Systems: ROS unobtainable: unobtainable due to mental status PMFSH Family History Family History Father Hypertension Mother Patient's mother is in good health Sibling Patient's brother is in good health Social History Social History (Reviewed 06/19/19 @ 14:53 by
[2019-06-23] MEDS: METOPROLOL TARTRATE 25 MG TABLET PO ×2 (10:32→21:10)
[2019-06-23] MEDS: AMLODIPINE BESYLATE 5 MG TABLET 10 MG PO (10:32)
[2019-06-23] MEDS: ATORVASTATIN 40 MG TABLET PO (10:32)
[2019-06-23] MEDS: ASPIRIN 325 MG TABLET BY MOUTH (10:32)
[2019-06-24] VITALS: BP 177/111; PULSE 82; RESP 20; TEMP 36.9; O2SAT 96
[2019-06-24 00:25] VITALS: BP 150/90
[2019-06-24] MEDS: ATORVASTATIN 40 MG TABLET PO (07:57)
[2019-06-24] MEDS: ASPIRIN 325 MG TABLET BY MOUTH (07:57)
[2019-06-24] MEDS: METOPROLOL TARTRATE 25 MG TABLET PO ×2 (07:59→20:33)
[2019-06-24 08:00] VITALS: BP 185/107; PULSE 91; RESP 18; TEMP 36.8; O2SAT 97
--- NOTE | 2019-06-24 08:16 | PM.IMPN ---
Progress Note: A&P Assessment and Plan (1) Suicidal ideation: Code(s): R45.851 - Suicidal ideations Status: Acute Assessment and Plan: Patient transferred ICU very early on 06/20/19 after issues just before midnight on 06/19/19 during which time he told nurse Get a gun, I will kill myself. Just kill me. . Has subsequently denied suicidal thoughts when speaking. Medically stable at this time. Was evaluated by crisis yesterday with recommendation for involuntary inpatient psychiatric treatment. Awaiting placement at this time. Will monitor. Continue suicide precautions. (2) Altered mental status: Qualifiers: Altered mental status type: unspecified Qualified Code(s): R41.82 - Altered mental status, unspecified Code(s): R41.82 - Altered mental status, unspecified Status: Acute Assessment and Plan: Exact baseline status unknown but appears to be at baseline now. Neurology consulted and appreciate input. 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 Attempted to get MRI as well as CTA neck but unable given unreliable information from patient. Instead, repeat CT scan completed on 06/22/2019 with no changes. Evaluated by speech therapy on 06/22/2019 with no specific difficulties noted. He has been tolerating diet. Will continue to have IV lorazepam as well as Haldol available as needed but both were last received on 06/22/2019. Will continue to monitor. (3) Hypertension: Qualifiers: Hypertension type: essential hypertension Qualified Code(s): I10 - Essential (primary) hypertension Code(s): I10 - Essential (primary) hypertension Status: Acute Assessment and Plan: Past medical history unreliable but feel most likely does have hypertension based on readings here. Blood pressure reviewed on 06/24/2019. Still with variable readings with some elevated readings. Will continue current amlodipine. Transition to oral metoprolol yesterday. Will continue to monitor and adjust as needed. IV hydralazine is available if needed. (4) Hemiparesis: Qualifiers: Hemiparesis etiology: unspecified Hemiparesis laterality: unspecified Qualified Code(s): G81.90 - Hemiplegia, unspecified affecting unspecified side Code(s): G81.90 - Hemiplegia, unspecified affecting unspecified side Status: Resolved Assessment and Plan: Noted to have weakness in the right arm and right leg on presentation. Resolved. No deficit at this time. CT brain x2 with no acute changes. (5) History of alcohol abuse: Code(s): F10.11 - Alcohol abuse, in remission Status: Acute Assessment and Plan: Reported history but had been at counts include [facility] beds at the [facility] for 10 days prior to presentation. No sign of withdrawal at this time. (6) History of substance abuse: Code(s): F19.11 - Other psychoactive substance abuse, in remission Status: Acute Assessment and Plan: Reported history. Toxicology screen negative on arrival. (7) DVT prophylaxis: Code(s): Z29.9 - Encounter for prophylactic measures, unspecified Status: Acute Assessment and Plan: SCDs. Subjective Interval history: Date of Service: 06/24/2019. Admitted with altered mental status from counts include 234 beds at the [facility]. Patient awake this morning. Sitter in the room. Sitter reports patient has been punching his food and cursing but not directly at her. He will look at me and nod his head to answer questions but will not speak. Denies chest pain. No shortness of breath. No abdominal pain. No headache. Review of Systems Constitutional: Constitutional: Denies fever(s) and Denies headache(s) ENT: Denies headache(s) and Denies sore throat Cardiovascular: Cardiovascular: Denies chest pain and Denies dyspnea Respiratory: Respiratory: Denies dyspnea Gastrointestinal: Gastrointestinal: Denies abdominal pain
[2019-06-24] MEDS: AMLODIPINE BESYLATE 5 MG TABLET 10 MG PO (09:21)
[2019-06-24 16:00] VITALS: BP 171/131; PULSE 109; RESP 12; TEMP 36.8; O2SAT 100
[2019-06-24] MEDS: hydrALAZINE HCL 25 MG TABLET PO (20:33)
--- NOTE | 2019-06-24 23:54 | PM.EVENT ---
Event Note Event Note: VIKY CORTES This is a 54-year-old male who is being treated for suicidal ideation and acute altered mental status who tonight became belligerent. Viky cortes was called overhead. On my arrival to bedside patient is pacing around in the room shouting obscenities and threatening the staff. The patient's nurse told me that he verbally threatened her and told her that if she did not get him a hot meal she would be very sorry. The patient was dosed with intramuscular Ativan, Haldol, and Benadryl. He was put back in his bed and placed in restraints. The patient continued to verbally assault the staff. We will plan to place an IV and start Precedex IV as the patient continues to be combative and agitated. Nursing staff called me to come back to the bedside as the patient continued to be aggressive and belligerent approximately 50 minutes after administration of Ativan,Haldol, Benadryl. The patient was given Zyprexa 10 mg IM. Approximately 1 hour later nursing staff called me again as the patient continued to be verbally aggressive, attempting to get out of bed even know he was in restraints, and agitated. The patient was administered IM ketamine. An IV was placed and precedex IV was finally started. Hard restraints were changed out for soft restraints. Negro catheter was placed. Will continue to closely monitor the patient overnight in ICU setting. We will make the patient ICU status again. Critical care time spent with this patient overnight exceeded 37 minutes.
[2019-06-25] VITALS (12 sets, daily range): BP systolic 89–165; BP diastolic 59–101; PULSE 65–98; RESP 13–17; TEMP 36.3–37.5; O2SAT 93–97
[2019-06-25] MEDS: LORAZEPAM INJ 2 MG/ML VIAL IM (00:11)
[2019-06-25] MEDS: HALOPERIDOL LACTATE 5 MG/ML VIAL IM (00:11)
--- NOTE | 2019-06-25 00:18 | PC.NURSE ---
Called into room by patient sitter. Patient found demanding hot foos. Patient holds styrofoam container towards me stating No more of this crap. I want some hot food now. Make it happen. Patient offered a sandwich and chips. Becomes more aggressive. States I know what you're doing here. Begins yelling at staff stating Get me my keys now! I'm getting the f out of here. Code Purple called. Appropriate staff responded. Ativan 2mg, Haldol 5 mg and Benadryl 50 mg administered IM. Hard restraints applied to bilateral ankle and wrist. Dr. Millan present providing orders. Patient no longer belligerent or aggressive.
[2019-06-25] MEDS: OLANZapine 10 MG INJ VIAL IM (01:01)
[2019-06-25] MEDS: KETAMINE HCL 500 MG/10 ML VIAL IM (02:23)
--- NOTE | 2019-06-25 08:53 | PM.IMPN ---
Progress Note: A&P Assessment and Plan (1) Altered mental status: Qualifiers: Altered mental status type: unspecified Qualified Code(s): R41.82 - Altered mental status, unspecified Code(s): R41.82 - Altered mental status, unspecified Status: Acute Assessment and Plan: AMS with baseline unclear on admission. 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 Attempted to get MRI as well as CTA neck but unable given unreliable information from patient. Instead, repeat CT scan completed on 06/22/2019 with no changes. Evaluated by speech therapy on 06/22/2019 with no specific difficulties noted. Patient became more belligerent and threatening last night. He required Benadryl, Ativan and Haldol. He ultimately was given ketamine and placed on Precedex drip. Precedex being weaned this morning. Continue to monitor. (2) Suicidal ideation: Code(s): R45.851 - Suicidal ideations Status: Acute Assessment and Plan: Patient transferred ICU very early on 06/20/19 after issues just before midnight on 06/19/19 during which time he told nurse Get a gun, I will kill myself. Just kill me. . Has subsequently denied suicidal thoughts. Was evaluated by Crisis with recommendation for involuntary inpatient psychiatric treatment. Placement when patietn more stable. Continue suicide precautions. (3) Hypertension: Qualifiers: Hypertension type: essential hypertension Qualified Code(s): I10 - Essential (primary) hypertension Code(s): I10 - Essential (primary) hypertension Status: Acute Assessment and Plan: Past medical history unreliable but feel most likely does have hypertension based on readings here. Blood pressure reviewed on 06/25/2019. BP elevated when agitated but lower now due to the sedation. Patient currently on amlodipine, hydralazine and metoprolol. Will place parameters on these medications given his soft blood pressure (4) Hemiparesis: Qualifiers: Hemiparesis etiology: unspecified Hemiparesis laterality: unspecified Qualified Code(s): G81.90 - Hemiplegia, unspecified affecting unspecified side Code(s): G81.90 - Hemiplegia, unspecified affecting unspecified side Status: Resolved Assessment and Plan: Noted to have weakness in the right arm and right leg on presentation. Resolved. Suspect related to his previous CVAs. CT brain x2 with no acute changes. Difficult to assess today. (5) History of alcohol abuse: Code(s): F10.11 - Alcohol abuse, in remission Status: Acute Assessment and Plan: Reported history but had been at [facility] for 10 days prior to presentation. Patient agitated but no signs of withdrawal at this time. (6) History of substance abuse: Code(s): F19.11 - Other psychoactive substance abuse, in remission Status: Acute Assessment and Plan: Reported history. Toxicology screen negative on arrival. (7) DVT prophylaxis: Code(s): Z29.9 - Encounter for prophylactic measures, unspecified Status: Acute Assessment and Plan: SCDs. Subjective Interval history: Date of Service: 06/25/2019. 54yo male admitted with altered mental status from [facility]. Assuming care. Chart reviewed. Case discussed with miller apprentice about last evening's events. Chart was reviewed about last night's events. Patient arouses but is sedated and unable to provide history. Exam Narrative: Exam Narrative: Gen - NARD Chest - distant but clear breath sounds anteriorly and in the flanks. CV - RRR S1/S2. No murmurs. Tele 4 beat run of NSVT Abd - Soft, NT/ND, Positive BS - Negro secured draining clear yellow urine. Ext - No pedal edema Neuro - arouses to voice but is sedated. Psych - difficult to assess Skin - warm and dry Objective Data Vital Signs Vital Signs: Vital Signs - 24 hr 06/24/19
[2019-06-25 10:41] LABS: Blood Urea Nitrogen 28 mg/dL (9-20); Calcium 9.2 mg/dL (8.4-10.2); Carbon Dioxide 24 mmol/L (22-30); Chloride 104 mmol/L (98-107); Estimated CRCL calculation 52 ml/min; Estimated Glomerular Filt Rate 49; Glucose 105 mg/dL (75-110); Magnesium 2.1 mg/dL (1.6-2.3); Sodium 138 mmol/L (137-145)
--- NOTE | 2019-06-25 11:32 | WPDINTPN ---
Progress Note: A&P Assessment and Plan (1) Agitation: Code(s): R45.1 - Restlessness and agitation Status: Acute Assessment and Plan: patient was agitated overnight with a Code Purple, requiring several meds and and Precedex infusion - Now sedated and precedex on hold - Scheduled seraquel added - Monitor (2) Altered mental status: Qualifiers: Altered mental status type: unspecified Qualified Code(s): R41.82 - Altered mental status, unspecified Code(s): R41.82 - Altered mental status, unspecified Status: Acute Assessment and Plan: Patient's is baseline mental status is unknown. Head CT done twice was negative for acute change CUS reviewed Pt has been receiving several sedatives and anxiolytics and most likley its TME Now sedated and precedex on hold (3) Suicidal ideation: Code(s): R45.851 - Suicidal ideations Status: Acute Assessment and Plan: Patient was transferred to ICU on 06/20/2019 in the early hours as he told the nurse Get a gun, I will kill myself. Just kill me. according the records patient denying suicidal thought. - Continue suicide precautions and bedside sitter - Crisis management to evaluate the patient (4) Acute kidney injury: Code(s): N17.9 - Acute kidney failure, unspecified Status: Acute Assessment and Plan: Start IVF Check CK (5) Hypertension: Qualifiers: Hypertension type: essential hypertension Qualified Code(s): I10 - Essential (primary) hypertension Code(s): I10 - Essential (primary) hypertension Status: Acute Assessment and Plan: blood pressures have been currently stable, but according to the in records patient has had elevated blood pressures - continue amlodipine and hydralazine (6) DVT prophylaxis: Code(s): Z29.9 - Encounter for prophylactic measures, unspecified Status: Acute Assessment and Plan: Start heparin SC Subjective Interval history: Overnight events reviewed. Pt was admitted for suicidal ideation and acute altered mental status who last night became belligerent. Code sophia was called overhead. Patient was pacing around in the room shouting obscenities and threatening the staff. The patient was given with intramuscular Ativan, Haldol, and Benadryl. He was also restrained. The patient continued to verbally assault the staff. The patient was given Zyprexa 10 mg IM than IM Ketamine and started on Precedex IV infusion This morning pt has been sleeping. precedex on hold Review of Systems Review of Systems: ROS unobtainable: unobtainable due to mental status Exam Narrative: Exam Narrative: General: Pt is sleeping and drowsy NAD Lungs/Chest: Trachea central Clear BS B/L, No crackles or wheezing. Cardiac: RRR. Normal S1 S2. No murmurs Circulation: Pedal pulses are intact and symmetrical. Abdomen: Normal bowel sounds.. Soft. NT. ND. Extremities: No clubbing, cyanosis or edema. Warm : Negro in place Neurologic: Sleeping with snoring, dorwsy requires deep stimulation to wake up. Wont cooperate PERRL Skin: No Rash Objective Data Vital Signs Vital Signs: Vital Signs - 24 hr 06/24/19 16:00 06/25/19 00:00 06/25/19 04:00 Temperature 36.8 C 37.5 C Pulse Rate 109 H 80 78 Respiratory Rate 12 14 14 Blood Pressure 171/131 H 165/95 H 97/75 L Pulse Oximetry 100 97 96 06/25/19 06:00 06/25/19 08:00 06/25/19 10:00 Temperature 36.3 C L Pulse Rate 66 68 77 Respiratory Rate 15 16 13 Blood Pressure 95/65 L 93/65 L 89/69 L Pulse Oximetry 93 L 94 L 94 L Intake/Output Intake/Output: Intake & Output 06/22/19 06/23/19 06/24/19 06/25/19 23:59 23:59 23:59 23:59 Intake Total 1200 1264.78 1544 500 Output Total 1475 302 450 Balance -275 962.78 1544 50 Meds/Results Medications: Active Medications Generic Name Dose Route Start Last Admin Trade Name Freq PRN Reason Stop Dose Admin Acetaminophen 650 mg
[2019-06-25 12:03] LABS: Creatine Kinase 342 U/L (55-170)
[2019-06-25] MEDS: SODIUM CHLORIDE 0.9% IV 1,000 ML 125 ML IV CONT ×2 (12:14→20:18)
[2019-06-25] MEDS: HEPARIN SODIUM 5,000 UNITS/ML VIAL 5000 UNITS SUB-Q ×2 (12:14→21:29)
[2019-06-25] MEDS: QUEtiapine FUMARATE 12.5 MG TABLET PO ×2 (12:54→21:29)
[2019-06-25] MEDS: hydrALAZINE HCL 25 MG TABLET PO (21:29)
[2019-06-25] MEDS: METOPROLOL TARTRATE 25 MG TABLET PO (21:29)
[2019-06-26] VITALS (16 sets, daily range): BP systolic 82–135; BP diastolic 55–92; PULSE 57–101; RESP 15–25; TEMP 35.9–37.1; O2SAT 92–100
--- NOTE | 2019-06-26 02:13 | PC.NURSE ---
Patient ate a turkey sandwich meal and was calm. Not long afterwards, the patient became extremely agitated, demanding I get a gun and shoot him or let him shoot himself. Trying to get out of bed, pulling at restraints, states, I don't want to fu live anymore, I'm done! Precedex bolus given and drip resumed at 1.2mcg/kg/min. Patient became very calm and went to sleep. Security was at the bedside along with the charge nurse, kamini Rivers and this RN.
[2019-06-26 04:14] LABS: Hematocrit 42.7 % (42.0-52.0); Hemoglobin 13.7 g/dL (14.0-18.0); Mean Corpuscular HGB Conc 32.1 g/dl (32-36); Mean Corpuscular Hemoglobin 27.7 pg (26-34); Mean Corpuscular Volume 86.3 fl (80-100); Mean Platelet Volume 11.6 fl (7.4-10.4); Platelet Count Result 162 k/mm3 (150-375); Red Blood Count 4.95 M/mm3 (4.6-6.20); Red Cell Distribution Width 15.2 % (11.5-14.5); White Blood Count 7.8 K/mm3 (4.5-10.0)
[2019-06-26] MEDS: SODIUM CHLORIDE 0.9% IV 1,000 ML 125 ML IV CONT ×3 (04:22→20:38)
[2019-06-26 04:27] LABS: Blood Urea Nitrogen 25 mg/dL (9-20); Calcium 8.2 mg/dL (8.4-10.2); Carbon Dioxide 26 mmol/L (22-30); Chloride 108 mmol/L (98-107); Estimated CRCL calculation 64 ml/min; Estimated Glomerular Filt Rate > 60; Glucose 113 mg/dL (75-110); Phosphorus 3.5 mg/dL (2.5-4.5); Potassium 3.9 mmol/L (3.4-5.0); Sodium 140 mmol/L (137-145)
[2019-06-26] MEDS: HEPARIN SODIUM 5,000 UNITS/ML VIAL 5000 UNITS SUB-Q (09:46)
--- NOTE | 2019-06-26 10:52 | WPDINTPN ---
Progress Note: A&P Assessment and Plan (1) Agitation: Code(s): R45.1 - Restlessness and agitation Status: Acute Assessment and Plan: patient was agitated and belligerent between the night of 06/24/2019 and 06/25/2019 with a Code Purple, requiring several meds and and Precedex infusion - hold Precedex at this time since patient is somnolent with snoring respirations and not responding except to deep pain stimulus - Seroquel increased to 25 mg p.o. b.i.d., - monitor mental status (2) Altered mental status: Qualifiers: Altered mental status type: unspecified Qualified Code(s): R41.82 - Altered mental status, unspecified Code(s): R41.82 - Altered mental status, unspecified Status: Acute Assessment and Plan: Patient's is baseline mental status is unknown. Head CT done twice was negative for acute change carotid ultrasound reviewed Pt has been receiving several sedatives and anxiolytics and most likley its TME Now sedated and precedex on hold (3) Suicidal ideation: Code(s): R45.851 - Suicidal ideations Status: Acute Assessment and Plan: Patient was transferred to ICU on 06/20/2019 in the early hours as he told the nurse Get a gun, I will kill myself. Just kill me. according the records patient denying suicidal thought. - Continue suicide precautions and bedside sitter - Crisis management to evaluate the patient (4) Acute kidney injury: Code(s): N17.9 - Acute kidney failure, unspecified Status: Acute Assessment and Plan: his CK levels elevated, was started on IV fluids on 06/25/2019 - creatinine trending down, continue to monitor urine output, electrolytes and renal function (5) Hypertension: Qualifiers: Hypertension type: essential hypertension Qualified Code(s): I10 - Essential (primary) hypertension Code(s): I10 - Essential (primary) hypertension Status: Acute Assessment and Plan: blood pressures have been currently stable, but according to the in records patient has had elevated blood pressures - continue amlodipine and hydralazine (6) DVT prophylaxis: Code(s): Z29.9 - Encounter for prophylactic measures, unspecified Status: Acute Assessment and Plan: heparin SQ Subjective Interval history: on the night of 06/24/2019 patient became agitated and belligerent, Code Purple was called, patient was given Haldol, ketamine, Ativan. Was started on Precedex infusion and was made ICU status again 06/26: Patient remains on Precedex infusion through the day of 06/25/2019 and this morning. Patient seen and examined, is sedated an barely opens his eyes to pain stimuli. Does not respond to verbal commands or follows simple commands. Precedex infusion was held. Review of Systems Review of Systems: ROS unobtainable: unobtainable due to mental status Exam Narrative: Exam Narrative: General: Patient is somnolent Lungs/Chest: Trachea central Clear BS B/L, No crackles or wheezing. Cardiac: RRR. Normal S1 S2. No murmurs Circulation: Pedal pulses are intact and symmetrical. Abdomen: Normal bowel sounds.. Soft. NT. ND. Extremities: No clubbing, cyanosis or edema. Warm : Negro in place Neurologic: somnolent and snoring, drowsy requires deep stimulation to wake up. PERRL Skin: No Rash Const: General: comfortable and no acute distress Other: General: Pt is sleeping and drowsy NAD Lungs/Chest: Trachea central Clear BS B/L, No crackles or wheezing. Cardiac: RRR. Normal S1 S2. No murmurs Circulation: Pedal pulses are intact and symmetrical. Abdomen: Normal bowel sounds.. Soft. NT. ND. Extremities: No clubbing, cyanosis or edema. Warm : Negro in place Neurologic: Sleeping with snoring, dorwsy requires deep stimulation to wake up. Wont cooperate PERRL Skin: No Rash HENMT: Other: General: Pt is sleeping and drowsy NAD Lungs/Chest: Trachea central Clear BS B/L, No cr
--- NOTE | 2019-06-26 13:44 | PC.NURSE ---
Dr. Vail and Leilani,RN coordinator at bedside. Patient unresponsive to verbal and physical touch. Precedex gtt off at 0940. RN used pain stimuli, patient aggressive, angry,swearing and threatening to staff. Patient reoriented to place and situation without change in level of aggression. Security called to bedside.
[2019-06-26] MEDS: LORAZEPAM INJ 2 MG/ML VIAL 1 MG IV PUSH (16:32)
[2019-06-26] MEDS: ASPIRIN 325 MG TABLET BY MOUTH (16:32)
[2019-06-26] MEDS: AMLODIPINE BESYLATE 5 MG TABLET 10 MG PO (16:32)
--- NOTE | 2019-06-26 16:32 | PM.IMPN ---
Progress Note: A&P Assessment and Plan (1) Altered mental status: Qualifiers: Altered mental status type: unspecified Qualified Code(s): R41.82 - Altered mental status, unspecified Code(s): R41.82 - Altered mental status, unspecified Status: Acute Assessment and Plan: AMS with baseline unclear on admission. 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 Attempted to get MRI as well as CTA neck but unable given unreliable information from patient. Instead, repeat CT scan completed on 06/22/2019 with no changes. Evaluated by speech therapy on 06/22/2019 with no specific difficulties noted. Patient became more belligerent and threatening on the evening on 06/24/19. He required Benadryl, Ativan and Haldol. He ultimately was given ketamine and placed on Precedex drip. Precedex was weaned off on the morning of 06/25/19 but required precedex again last night. Seroquel started which may be helping. Continue to monitor. (2) Suicidal ideation: Code(s): R45.851 - Suicidal ideations Status: Acute Assessment and Plan: Patient transferred ICU very early on 06/20/19 after issues just before midnight on 06/19/19 during which time he told nurse Get a gun, I will kill myself. Just kill me. . Has subsequently denied suicidal thoughts. Was evaluated by Crisis with recommendation for involuntary inpatient psychiatric treatment. Since then, patient became more belligerent and agitated requiring sedation. Precedex has been stopped and patietn remaining calm. Placement tomorrow if patient remains calm. Continue suicide precautions. (3) Hypertension: Qualifiers: Hypertension type: essential hypertension Qualified Code(s): I10 - Essential (primary) hypertension Code(s): I10 - Essential (primary) hypertension Status: Acute Assessment and Plan: Blood pressure reviewed on 06/26/2019. BP elevated when agitated initially but lower when sedation. Patient currently off Precedex and BP soft at times. On amlodipine, hydralazine and metoprolol with parameters in place. Will stop hydralazine and continue to monitor. (4) Hemiparesis: Qualifiers: Hemiparesis etiology: unspecified Hemiparesis laterality: unspecified Qualified Code(s): G81.90 - Hemiplegia, unspecified affecting unspecified side Code(s): G81.90 - Hemiplegia, unspecified affecting unspecified side Status: Resolved Assessment and Plan: Noted to have weakness in the right arm and right leg on presentation that resolved. Suspect related to his previous CVAs. CT brain x2 with no acute changes. Increase activity as he tolerates. (5) History of alcohol abuse: Code(s): F10.11 - Alcohol abuse, in remission Status: Acute Assessment and Plan: [facility] Patient agitated at times but more calm now. Do not feel patient with signs of withdrawal at this time. (6) History of substance abuse: Code(s): F19.11 - Other psychoactive substance abuse, in remission Status: Acute Assessment and Plan: Reported history. Toxicology screen negative on arrival. Was in assisted prior to admission. (7) DVT prophylaxis: Code(s): Z29.9 - Encounter for prophylactic measures, unspecified Status: Acute Assessment and Plan: Heparin Subjective Interval history: Date of Service: 06/26/2019. 54yo [facility] Patietn off the Precedex this morning. Feeling better overall but still feels anxious. Eating okay. No n/v. No CP or back pain but does complain of abd pain. Also complains of a dry cough. Exam Narrative: Exam Narrative: Gen - NARD lying almost flat in bed Chest - distant but clear BS, nml RR CV - RRR S1/S2. Tele showing 4 be
[2019-06-26] MEDS: QUEtiapine FUMARATE 25 MG TABLET PO ×2 (16:33→20:37)
[2019-06-26] MEDS: ATORVASTATIN 40 MG TABLET PO (16:33)
[2019-06-26] MEDS: METOPROLOL TARTRATE 25 MG TABLET PO ×2 (16:33→20:37)
[2019-06-26] MEDS: hydrALAZINE HCL 25 MG TABLET PO (16:34)
[2019-06-27] VITALS (15 sets, daily range): BP systolic 114–187; BP diastolic 61–108; PULSE 62–110; RESP 14–24; TEMP 36.6–36.8; O2SAT 92–97
[2019-06-27] MEDS: LORAZEPAM INJ 2 MG/ML VIAL 1 MG IV PUSH (02:05)
[2019-06-27] MEDS: HALOPERIDOL LACTATE 5 MG/ML VIAL 10 MG IM (02:46)
[2019-06-27 04:34] LABS: Hematocrit 41.7 % (42.0-52.0); Hemoglobin 13.5 g/dL (14.0-18.0); Mean Corpuscular HGB Conc 32.4 g/dl (32-36); Mean Corpuscular Hemoglobin 27.7 pg (26-34); Mean Corpuscular Volume 85.6 fl (80-100); Mean Platelet Volume 11.7 fl (7.4-10.4); Platelet Count Result 160 k/mm3 (150-375); Red Blood Count 4.87 M/mm3 (4.6-6.20); Red Cell Distribution Width 14.8 % (11.5-14.5); White Blood Count 8.6 K/mm3 (4.5-10.0)
[2019-06-27] MEDS: SODIUM CHLORIDE 0.9% IV 1,000 ML 125 ML IV CONT ×2 (04:46→12:53)
[2019-06-27 04:55] LABS: Blood Urea Nitrogen 15 mg/dL (9-20); Calcium 8.1 mg/dL (8.4-10.2); Carbon Dioxide 25 mmol/L (22-30); Chloride 108 mmol/L (98-107); Estimated CRCL calculation 76 ml/min; Estimated Glomerular Filt Rate > 60; Glucose 95 mg/dL (75-110); Magnesium 1.9 mg/dL (1.6-2.3); Phosphorus 2.5 mg/dL (2.5-4.5); Potassium 3.6 mmol/L (3.4-5.0); Sodium 140 mmol/L (137-145)
[2019-06-27] MEDS: HEPARIN SODIUM 5,000 UNITS/ML VIAL 5000 UNITS SUB-Q (08:20)
[2019-06-27] MEDS: METOPROLOL TARTRATE 25 MG TABLET PO ×2 (08:20→19:47)
--- NOTE | 2019-06-27 09:20 | WPDINTPN ---
Progress Note: A&P Assessment and Plan (1) Agitation: Code(s): R45.1 - Restlessness and agitation Status: Acute Assessment and Plan: patient was agitated and belligerent between the night of 06/24/2019 and 06/25/2019 with a Code Purple, requiring several meds and and Precedex infusion - Precedex has been off. Patient is more awake, alert but not cooperative, patient is calm, not agitated at this time - Seroquel increased to 50mg p.o. b.i.d., - monitor mental status (2) Altered mental status: Qualifiers: Altered mental status type: unspecified Qualified Code(s): R41.82 - Altered mental status, unspecified Code(s): R41.82 - Altered mental status, unspecified Status: Acute Assessment and Plan: Patient's is baseline mental status is unknown. Head CT done twice was negative for acute change carotid ultrasound reviewed Pt has been receiving several sedatives and anxiolytics and most likley its TME off Precedex (3) Suicidal ideation: Code(s): R45.851 - Suicidal ideations Status: Acute Assessment and Plan: Patient was transferred to ICU on 06/20/2019 in the early hours as he told the nurse Get a gun, I will kill myself. Just kill me. according the records patient denying suicidal thought. - Continue suicide precautions and bedside sitter - Crisis management has evaluated patient (4) Acute kidney injury: Code(s): N17.9 - Acute kidney failure, unspecified Status: Acute Assessment and Plan: patient had some elevation in his creatinine and CK levels, patient continues to be hydrated with IV fluids, - creatinine down to 1.0 this morning. Urine output has been good. - continue to monitor urine output, electrolytes and renal function (5) Hypertension: Qualifiers: Hypertension type: essential hypertension Qualified Code(s): I10 - Essential (primary) hypertension Code(s): I10 - Essential (primary) hypertension Status: Acute Assessment and Plan: blood pressures have been currently stable, but according to the in records patient has had elevated blood pressures - continue amlodipine and hydralazine (6) DVT prophylaxis: Code(s): Z29.9 - Encounter for prophylactic measures, unspecified Status: Acute Assessment and Plan: heparin SQ Patient is refusing his heparin. - Will add SCDs Additional Plan will discuss with care coordination and crisis management about placement. patient has been off Precedex code status: Full code critical care time spent: 31 minutes Subjective Interval history: Patient seen examined this morning, is more awake. not answering questions but states he is hungry and wants to eat. patient is hemodynamically stable, adequate urine output, good O2 sats on room air. Patient's creatinine is 1.0 this morning Review of Systems Review of Systems: ROS unobtainable: other ( unable to obtain any review of systems as patient is uncooperative) Exam Narrative: Exam Narrative: General: patient is more awake, alert, asking for breakfast. NAD Lungs/Chest: Clear BS B/L, No crackles or wheezing. Cardiac: RRR. Normal S1 S2. No murmurs Circulation: Pedal pulses are intact and symmetrical. Abdomen: Normal bowel sounds.. Soft. NT. ND. Extremities: No clubbing, cyanosis or edema. Warm : Negro in place Neurologic: Patient is more awake, alert but not cooperative Skin: No Rash Eyes: General: appearance normal, both eyes and all related structures Sclera: sclerae normal Neck: Neck: supple and no JVD Resp: Effort & Inspection: normal respiratory effort Auscultation: clear to auscultation bilaterally Cardio: Rate: regular rate Rhythm: regular rhythm GI: Palpation (GI): Yes soft and Yes tender Auscultation: normal bowel sounds Urinary Catheter: Urinary Catheter: urine clear Skin: General skin exam: normal color and no rashes or lesions noted
[2019-06-27] MEDS: AMLODIPINE BESYLATE 5 MG TABLET 10 MG PO (09:51)
[2019-06-27] MEDS: ATORVASTATIN 40 MG TABLET PO (09:51)
[2019-06-27] MEDS: QUEtiapine FUMARATE 25 MG TABLET PO ×2 (09:52→10:42)
[2019-06-27] MEDS: ASPIRIN 325 MG TABLET BY MOUTH (09:52)
[2019-06-27 13:09] LABS: Creatine Kinase 357 U/L (55-170)
--- NOTE | 2019-06-27 15:35 | PM.IMPN ---
Progress Note: A&P Assessment and Plan (1) Altered mental status: Qualifiers: Altered mental status type: unspecified Qualified Code(s): R41.82 - Altered mental status, unspecified Code(s): R41.82 - Altered mental status, unspecified Status: Acute Assessment and Plan: AMS with baseline unclear on admission. 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 Attempted to get MRI as well as CTA neck but unable given unreliable information from patient. Instead, repeat CT scan completed on 06/22/2019 with no changes. Evaluated by speech therapy on 06/22/2019 with no specific difficulties noted. Patient became more belligerent and threatening on the evening on 06/24/19. He required Benadryl, Ativan and Haldol. He ultimately was given ketamine and placed on Precedex drip. Precedex was weaned off on the morning of 06/25/19 but required precedex again that evening. Seroquel started which may be helping. Precedex weaned off the morning of 06/26/19. He did require Haldol and Ativan overnight but overall remaining calm. Continue to monitor. eroquel advanced. Stop IVF. Remove Negro. (2) Suicidal ideation: Code(s): R45.851 - Suicidal ideations Status: Acute Assessment and Plan: Patient transferred ICU very early on 06/20/19 after issues just before midnight on 06/19/19 during which time he told nurse Get a gun, I will kill myself. Just kill me. . Has subsequently denied suicidal thoughts. Was evaluated by Crisis with recommendation for involuntary inpatient psychiatric treatment. Since then, patient became more belligerent and agitated requiring sedation. Not able to place patinet today. Continue suicide precautions. (3) Hypertension: Qualifiers: Hypertension type: essential hypertension Qualified Code(s): I10 - Essential (primary) hypertension Code(s): I10 - Essential (primary) hypertension Status: Acute Assessment and Plan: Blood pressure reviewed on 06/27/2019. BP elevated when agitated initially but lower when sedation. Patient currently off Precedex and BP soft at times. On amlodipine and metoprolol with parameters in place. Hydralazine stopped. Continue to monitor. (4) Hemiparesis: Qualifiers: Hemiparesis etiology: unspecified Hemiparesis laterality: unspecified Qualified Code(s): G81.90 - Hemiplegia, unspecified affecting unspecified side Code(s): G81.90 - Hemiplegia, unspecified affecting unspecified side Status: Resolved Assessment and Plan: Noted to have weakness in the right arm and right leg on presentation that resolved. Suspect related to his previous CVAs. CT brain x2 with no acute changes. Increase activity as he tolerates. (5) History of alcohol abuse: Code(s): F10.11 - Alcohol abuse, in remission Status: Acute Assessment and Plan: Reported history but has been at [facility] for 10 days prior to presentation. Patient agitated at times but more calm now. Do not feel patient with signs of withdrawal at this time. Will add thiamine and Folate. (6) History of substance abuse: Code(s): F19.11 - Other psychoactive substance abuse, in remission Status: Acute Assessment and Plan: Reported history. Toxicology screen negative on arrival. Was in group home prior to admission. Subjective Interval history: Date of Service: 06/27/2019. 54yo male admitted with altered mental status from [facility]. Patient off the Precedex yesterday morning. No problem. Did become mildly agitated last night again requiring Haldol and Ativan. Patient denies CP and abd pain but stil with back pain (chronic). Cough better. No headache or SOB. Eating better. Exam Narrative: Exam Narrative: Gen - NARD Chest - CTA bilat, nml RR CV - RRR S1/S2. Tele showing no significant dysrhythmias Abd - Soft, NT/ND,
[2019-06-27] MEDS: QUEtiapine FUMARATE 25 MG TABLET 50 MG PO (19:46)
[2019-06-28] VITALS: PULSE 84; RESP 24; O2SAT 95
[2019-06-28] MEDS: LORAZEPAM INJ 2 MG/ML VIAL 1 MG IV PUSH ×3 (00:28→20:43)
[2019-06-28] MEDS: HALOPERIDOL LACTATE 5 MG/ML VIAL 10 MG IM ×2 (00:35→01:30)
[2019-06-28 05:41] LABS: Hematocrit 41.8 % (42.0-52.0); Hemoglobin 13.9 g/dL (14.0-18.0); Mean Corpuscular HGB Conc 33.3 g/dl (32-36); Mean Corpuscular Hemoglobin 27.9 pg (26-34); Mean Corpuscular Volume 83.9 fl (80-100); Mean Platelet Volume 12.7 fl (7.4-10.4); Platelet Count Result 159 k/mm3 (150-375); Red Blood Count 4.98 M/mm3 (4.6-6.20); Red Cell Distribution Width 14.5 % (11.5-14.5)
[2019-06-28 05:49] LABS: Creatine Kinase 638 U/L (55-170)
[2019-06-28 05:52] LABS: Blood Urea Nitrogen 11 mg/dL (9-20); Carbon Dioxide 29 mmol/L (22-30); Chloride 103 mmol/L (98-107); Estimated CRCL calculation 76 ml/min; Estimated Glomerular Filt Rate > 60; Glucose 126 mg/dL (75-110); Magnesium 1.8 mg/dL (1.6-2.3); Phosphorus 2.8 mg/dL (2.5-4.5); Potassium 3.6 mmol/L (3.4-5.0); Sodium 139 mmol/L (137-145)
[2019-06-28 08:00] VITALS: BP 145/95; PULSE 70; PULSE 84; RESP 19; RESP 24; TEMP 36.4; O2SAT 95; O2SAT 96
--- NOTE | 2019-06-28 08:35 | PCDIET ---
Weekly nutritional screen. Patient is tolerating current diet with adequate intake - 100% of most meals. No weight loss. Moving bowels. Skin intact. No nutritional needs at this time.
--- NOTE | 2019-06-28 13:39 | PM.IMPN ---
Progress Note: A&P Assessment and Plan (1) Altered mental status: Qualifiers: Altered mental status type: unspecified Qualified Code(s): R41.82 - Altered mental status, unspecified Code(s): R41.82 - Altered mental status, unspecified Status: Acute Assessment and Plan: AMS with baseline unclear on admission. 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 Attempted to get MRI as well as CTA neck but unable given unreliable information from patient. Instead, repeat CT scan completed on 06/22/2019 with no changes. Evaluated by speech therapy on 06/22/2019 with no specific difficulties noted. Patient became more belligerent and threatening on the evening on 06/24/19. He required Benadryl, Ativan and Haldol. He ultimately was given ketamine and placed on Precedex drip. Precedex was weaned off on the morning of 06/25/19 but required precedex again that evening. Seroquel started which may be helping. Precedex weaned off the morning of 06/26/19 and has been off since. He did require Haldol and Ativan overnight for the past two nights. Continue to monitor. Will advance Seroquel again. (2) Suicidal ideation: Code(s): R45.851 - Suicidal ideations Status: Acute Assessment and Plan: Patient transferred ICU very early on 06/20/19 after issues just before midnight on 06/19/19 during which time he told nurse Get a gun, I will kill myself. Just kill me. . Has subsequently denied suicidal thoughts. Was evaluated by Crisis with recommendation for involuntary inpatient psychiatric treatment. Since then, patient became more belligerent and agitated requiring sedation intermittently at times. Did require Precedex. Awaiting placement. Continue suicide precautions. (3) Hypertension: Qualifiers: Hypertension type: essential hypertension Qualified Code(s): I10 - Essential (primary) hypertension Code(s): I10 - Essential (primary) hypertension Status: Acute Assessment and Plan: Blood pressure reviewed on 06/28/2019. BP elevated last night when agitated initially but better this morning. Patient currently on amlodipine and metoprolol with parameters in place. Continue to monitor. (4) Hemiparesis: Qualifiers: Hemiparesis etiology: unspecified Hemiparesis laterality: unspecified Qualified Code(s): G81.90 - Hemiplegia, unspecified affecting unspecified side Code(s): G81.90 - Hemiplegia, unspecified affecting unspecified side Status: Resolved Assessment and Plan: Noted to have weakness in the right arm and right leg on presentation that resolved. Suspect related to his previous CVAs. CT brain x2 with no acute changes. Increase activity as he tolerates. (5) History of alcohol abuse: Code(s): F10.11 - Alcohol abuse, in remission Status: Acute Assessment and Plan: Reported history but has been at [facility] for 10 days prior to presentation. Patient agitated at times but more calm now. Do not feel patient with signs of withdrawal at this time. Continue thiamine and Folate. (6) History of substance abuse: Code(s): F19.11 - Other psychoactive substance abuse, in remission Status: Acute Assessment and Plan: Reported history. Toxicology screen negative on arrival. Was in [facility] prior to admission. Subjective Interval history: Date of Service: 06/28/2019. 54yo male admitted with altered mental status from [facility]. Patient remains off Precedex but still agitated overnight. He again required Haldol and Ativan last night. He feels well today. No CP or SOB. Denies MAI, cough or dysuria. Eating well. Exam Narrative: Exam Narrative: Gen - NARD Chest - clear distatn BS, nml RR CV - RRR S1/S2 Abd - Soft, NT/ND, Positive BS. Large midline hernia Ext - No pedal edema Psych - flat affect. Calm and appropriate. Disheve
[2019-06-28 20:00] VITALS: BP 149/97; PULSE 90; RESP 20; TEMP 36.6; O2SAT 96
[2019-06-28 20:44] VITALS: PULSE 85
[2019-06-28] MEDS: QUEtiapine FUMARATE 25 MG TABLET 75 MG PO (20:44)
[2019-06-28] MEDS: METOPROLOL TARTRATE 25 MG TABLET PO (20:44)
[2019-06-28 20:57] VITALS: PULSE 80
[2019-06-29] MEDS: LORAZEPAM INJ 2 MG/ML VIAL 1 MG IV PUSH ×3 (01:49→19:54)
[2019-06-29 08:49] LABS: Hemoglobin 14.8 g/dL (14.0-18.0); Mean Corpuscular HGB Conc 32.9 g/dl (32-36); Mean Corpuscular Hemoglobin 27.5 pg (26-34); Mean Corpuscular Volume 83.6 fl (80-100); Mean Platelet Volume 11.9 fl (7.4-10.4); Platelet Count Result 181 k/mm3 (150-375); Red Blood Count 5.38 M/mm3 (4.6-6.20); Red Cell Distribution Width 14.8 % (11.5-14.5); White Blood Count 8.9 K/mm3 (4.5-10.0)
[2019-06-29 09:02] LABS: Blood Urea Nitrogen 14 mg/dL (9-20); Carbon Dioxide 29 mmol/L (22-30); Chloride 101 mmol/L (98-107); Estimated CRCL calculation 76 ml/min; Estimated Glomerular Filt Rate > 60; Glucose 96 mg/dL (75-110); Magnesium 1.9 mg/dL (1.6-2.3); Phosphorus 3.8 mg/dL (2.5-4.5); Potassium 3.9 mmol/L (3.4-5.0); Sodium 137 mmol/L (137-145)
[2019-06-29 11:26] VITALS: BP 141/98; PULSE 87; TEMP 36.6; O2SAT 96
[2019-06-29 11:30] VITALS: PULSE 87
[2019-06-29] MEDS: HEPARIN SODIUM 5,000 UNITS/ML VIAL 5000 UNITS SUB-Q ×2 (11:30→19:53)
[2019-06-29] MEDS: QUEtiapine FUMARATE 25 MG TABLET 75 MG PO ×2 (11:30→19:53)
[2019-06-29] MEDS: METOPROLOL TARTRATE 25 MG TABLET PO ×2 (11:30→19:54)
[2019-06-29] MEDS: FOLIC ACID 1 MG TABLET PO (11:31)
[2019-06-29] MEDS: ASPIRIN 81 MG CHEWABLE TABLET BY MOUTH (11:31)
[2019-06-29] MEDS: AMLODIPINE BESYLATE 5 MG TABLET 10 MG PO (11:31)
[2019-06-29] MEDS: ATORVASTATIN 40 MG TABLET PO (11:31)
[2019-06-29] MEDS: THIAMINE HCL 100 MG TABLET PO (11:31)
--- NOTE | 2019-06-29 12:51 | PM.IMPN ---
Progress Note: A&P Assessment and Plan (1) Altered mental status: Qualifiers: Altered mental status type: unspecified Qualified Code(s): R41.82 - Altered mental status, unspecified Code(s): R41.82 - Altered mental status, unspecified Status: Acute Assessment and Plan: AMS with baseline unclear on admission. 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 Repeat CT scan completed on 06/22/2019 with no changes. Evaluated by speech therapy on 06/22/2019 with no specific difficulties noted. Patient became more belligerent and threatening on the evening on 06/24/19. He required Benadryl, Ativan and Haldol. He ultimately was given ketamine and placed on Precedex drip. Precedex was weaned off on the morning of 06/25/19 but required precedex again that evening. Seroquel started which may be helping. Precedex weaned off the morning of 06/26/19 and has been off since. He did require Haldol and Ativan intermittently but only needed Ativan last night. Continue to monitor. Continue Seroquel at current dose. (2) Suicidal ideation: Code(s): R45.851 - Suicidal ideations Status: Acute Assessment and Plan: Patient transferred ICU very early on 06/20/19 after issues just before midnight on 06/19/19 during which time he told nurse Get a gun, I will kill myself. Just kill me. . Has subsequently denied suicidal thoughts. Was evaluated by Crisis with recommendation for involuntary inpatient psychiatric treatment. Since then, patient became more belligerent and agitated requiring sedation intermittently at times. Did require Precedex intermittently. Awaiting placement. Continue suicide precautions. (3) Hypertension: Qualifiers: Hypertension type: essential hypertension Qualified Code(s): I10 - Essential (primary) hypertension Code(s): I10 - Essential (primary) hypertension Status: Acute Assessment and Plan: Blood pressure reviewed on 06/29/2019. blood pressure stable and well controlled. Patient currently on amlodipine and metoprolol with parameters in place. Continue to monitor. (4) Hemiparesis: Qualifiers: Hemiparesis etiology: unspecified Hemiparesis laterality: unspecified Qualified Code(s): G81.90 - Hemiplegia, unspecified affecting unspecified side Code(s): G81.90 - Hemiplegia, unspecified affecting unspecified side Status: Resolved Assessment and Plan: Noted to have weakness in the right arm and right leg on presentation that resolved. Suspect related to his previous CVAs. CT brain x2 with no acute changes. Difficult to assess. Increase activity as he tolerates. (5) History of alcohol abuse: Code(s): F10.11 - Alcohol abuse, in remission Status: Acute Assessment and Plan: Reported history but has been at [facility] for 10 days prior to presentation. Patient agitated at times still. Do not feel patient with signs of withdrawal at this time. Continue thiamine and Folate. (6) History of substance abuse: Code(s): F19.11 - Other psychoactive substance abuse, in remission Status: Acute Assessment and Plan: Reported history. Toxicology screen negative on arrival. Was in residential prior to admission. Subjective Interval history: Date of Service: 06/29/2019. 54yo male admitted with altered mental status from [facility]. Patient remains off Precedex but still agitated overnight requiring 1 dose of Ativan. no issues overnight. Patient without complaints. Patient slept well after the Ativan. Patient was seen around 11:00 a.m. and had just woken up. Exam Narrative: Exam Narrative: Gen - NARD Chest - Clear distant breath sounds. Normal respiratory rate. CV - RRR S1/S2 Abd - Soft, NT/ND, Positive BS. Large midline hernia Ext - No pedal edema Psych - flat affect. Calm and appropriate. Disheveled appearing
[2019-06-29] MEDS: HALOPERIDOL LACTATE 5 MG/ML VIAL 10 MG IM ×2 (15:35→22:27)
[2019-06-29 19:52] VITALS: BP 137/95; PULSE 88; RESP 18; TEMP 36.8; O2SAT 95
[2019-06-29 19:54] VITALS: PULSE 88
[2019-06-29 20:00] VITALS: BP 137/95; PULSE 88; RESP 18; TEMP 36.8; O2SAT 95
[2019-06-30] MEDS: THIAMINE HCL 100 MG TABLET PO (07:46)
[2019-06-30] MEDS: ATORVASTATIN 40 MG TABLET PO (07:47)
[2019-06-30] MEDS: AMLODIPINE BESYLATE 5 MG TABLET 10 MG PO (07:47)
[2019-06-30] MEDS: ASPIRIN 81 MG CHEWABLE TABLET BY MOUTH (07:47)
[2019-06-30 07:48] VITALS: PULSE 79
[2019-06-30] MEDS: METOPROLOL TARTRATE 25 MG TABLET PO ×2 (07:48→19:24)
[2019-06-30] MEDS: FOLIC ACID 1 MG TABLET PO (07:48)
[2019-06-30] MEDS: QUEtiapine FUMARATE 25 MG TABLET 75 MG PO ×2 (07:49→19:25)
[2019-06-30 07:51] VITALS: BP 154/92; PULSE 79; RESP 16; TEMP 36.6; O2SAT 97
[2019-06-30 09:26] LABS: Hematocrit 42.7 % (42.0-52.0); Hemoglobin 14.1 g/dL (14.0-18.0); Mean Corpuscular Hemoglobin 27.9 pg (26-34); Mean Corpuscular Volume 84.4 fl (80-100); Mean Platelet Volume 12.2 fl (7.4-10.4); Platelet Count Result 180 k/mm3 (150-375); Red Blood Count 5.06 M/mm3 (4.6-6.20); Red Cell Distribution Width 14.6 % (11.5-14.5); White Blood Count 7.4 K/mm3 (4.5-10.0)
[2019-06-30 09:38] LABS: Blood Urea Nitrogen 16 mg/dL (9-20); Calcium 8.9 mg/dL (8.4-10.2); Carbon Dioxide 27 mmol/L (22-30); Chloride 101 mmol/L (98-107); Estimated CRCL calculation 84 ml/min; Estimated Glomerular Filt Rate > 60; Glucose 144 mg/dL (75-110); Magnesium 1.8 mg/dL (1.6-2.3); Phosphorus 3.6 mg/dL (2.5-4.5); Potassium 3.5 mmol/L (3.4-5.0); Sodium 137 mmol/L (137-145)
--- NOTE | 2019-06-30 10:35 | PM.IMPN ---
Progress Note: A&P Assessment and Plan (1) Altered mental status: Qualifiers: Altered mental status type: unspecified Qualified Code(s): R41.82 - Altered mental status, unspecified Code(s): R41.82 - Altered mental status, unspecified Status: Acute Assessment and Plan: AMS with baseline unclear on admission. 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 Repeat CT scan completed on 06/22/2019 with no changes. Evaluated by speech therapy on 06/22/2019 with no specific difficulties noted. Patient became more belligerent and threatening on the evening on 06/24/19. He required Benadryl, Ativan and Haldol. He ultimately was given ketamine and placed on Precedex drip. Precedex was weaned off on the morning of 06/25/19 but required precedex again that evening. Seroquel started which is helping. Precedex weaned off the morning of 06/26/19 and has been off since. He does require Haldol and Ativan intermittently mostly at night. Continue to monitor. Continue Seroquel at current dose. Awaiting placement. (2) Suicidal ideation: Code(s): R45.851 - Suicidal ideations Status: Acute Assessment and Plan: Patient transferred ICU very early on 06/20/19 after issues just before midnight on 06/19/19 during which time he told nurse Get a gun, I will kill myself. Just kill me. . Has subsequently denied suicidal thoughts. Was evaluated by Crisis with recommendation for involuntary inpatient psychiatric treatment. Since then, patient became more belligerent and agitated requiring sedation intermittently at times. Did require Precedex intermittently. Awaiting placement. Continue suicide precautions. (3) Hypertension: Qualifiers: Hypertension type: essential hypertension Qualified Code(s): I10 - Essential (primary) hypertension Code(s): I10 - Essential (primary) hypertension Status: Acute Assessment and Plan: Blood pressure reviewed on 06/30/2019. Blood pressure stable and reasonably well controlled. Patient currently on amlodipine and metoprolol with parameters in place. Continue to monitor. (4) Hemiparesis: Qualifiers: Hemiparesis etiology: unspecified Hemiparesis laterality: unspecified Qualified Code(s): G81.90 - Hemiplegia, unspecified affecting unspecified side Code(s): G81.90 - Hemiplegia, unspecified affecting unspecified side Status: Resolved Assessment and Plan: Noted to have weakness in the right arm and right leg on presentation that resolved. Suspect related to his previous CVAs. CT brain x2 with no acute changes. Difficult to fully assess. Increase activity as he tolerates. (5) History of alcohol abuse: Code(s): F10.11 - Alcohol abuse, in remission Status: Acute Assessment and Plan: Reported history but has been at [facility] for 10 days prior to presentation. Patient agitated at times still. Do not feel patient with signs of withdrawal at this time. Continue thiamine and Folate. (6) History of substance abuse: Code(s): F19.11 - Other psychoactive substance abuse, in remission Status: Acute Assessment and Plan: Reported history. Toxicology screen negative on arrival. Was in long-term prior to admission. Subjective Interval history: Date of Service: 06/30/2019. 54yo male admitted with altered mental status from [facility]. Patient remains off Precedex but still agitated last night requiring 1 dose of Ativan and 1 dose of Haldol (last dose at 2200). No issues overnight and patient slept okay. Eating well. Patient does not provide history today. Exam Narrative: Exam Narrative: Gen - NARD Chest - Clear distant breath sounds to quiet respirations CV - RRR S1/S2 Abd - Soft, NT/ND, Positive BS. Large midline hernia Ext - No pedal edema Psych - flat affect. remains calm. mumbles a few uninte
[2019-06-30] MEDS: HEPARIN SODIUM 5,000 UNITS/ML VIAL 5000 UNITS SUB-Q (14:14)
[2019-06-30 19:24] VITALS: PULSE 83
[2019-06-30] MEDS: LORAZEPAM INJ 2 MG/ML VIAL 1 MG IV PUSH (19:28)
[2019-06-30 20:00] VITALS: BP 151/97; PULSE 83; RESP 18; TEMP 36.4; O2SAT 96
[2019-06-30] MEDS: HALOPERIDOL LACTATE 5 MG/ML VIAL 10 MG IM (23:52)
[2019-07-01 08:00] VITALS: BP 121/81; PULSE 76; PULSE 83; RESP 14; RESP 18; TEMP 36.9; O2SAT 96
[2019-07-01] MEDS: THIAMINE HCL 100 MG TABLET PO (08:25)
[2019-07-01] MEDS: METOPROLOL TARTRATE 25 MG TABLET PO ×2 (08:25→19:51)
[2019-07-01] MEDS: FOLIC ACID 1 MG TABLET PO (08:25)
[2019-07-01] MEDS: ATORVASTATIN 40 MG TABLET PO (08:26)
[2019-07-01] MEDS: QUEtiapine FUMARATE 25 MG TABLET 75 MG PO ×2 (08:26→19:51)
[2019-07-01] MEDS: AMLODIPINE BESYLATE 5 MG TABLET 10 MG PO (08:26)
[2019-07-01] MEDS: ASPIRIN 81 MG CHEWABLE TABLET BY MOUTH (08:26)
[2019-07-01] MEDS: HEPARIN SODIUM 5,000 UNITS/ML VIAL 5000 UNITS SUB-Q ×2 (08:26→19:54)
[2019-07-01] MEDS: LORAZEPAM INJ 2 MG/ML VIAL 1 MG IV PUSH ×2 (09:08→17:40)
--- NOTE | 2019-07-01 09:41 | PC.NURSE ---
Isabella from Crisis here, stated that pt is not an appropriate pt for psych placement and is not suicidal, signed a safety agreement with her, notified Dr. Strickland, after Isabella talked to him an hour ago via phone, doctor states he needs placement to help manage drugs and to get him on appropriate dosing, will not discharge him, notified community outreach manager of this, left message with care coordination.
--- NOTE | 2019-07-01 13:46 | PCDIET ---
ICU Rounding Note: Pt current nutrition is Regular. Nutrition recommendation: Continue with same diet. Last recorded weight is 82.2kg. Bowel Motility: Labs Reviewed: Meds Noted: Additional Notes: Pt on regular diet with good intake, 100% of last meal tray. No further recommendations at this time. Following daily in ICU rounds. Assessing/reassessing q 7 days.
--- NOTE | 2019-07-01 17:32 | PM.TDS ---
Transfer Discharge Sum: Prov Provider Date of admission: 06/21/19 14:49 Primary care physician: UNKNOWN,DOCTOR Admitting clinician: Verna Livingston MD Attending physician on admission: Kirby Strickland Consults: 06/19/19 Consult to Physician Routine Comment: CONSULTED AT 1215 ([place],) Consulting Provider: Naga Bowen call center support representative/MD group to consult: Neurology Reason for consultation: High suspicion of stroke Has provider been notified: Yes 06/22/19 Care Coordination Consult Routine Comment: crisis evaluation Reason for Consult:: Other 06/23/19 00:39 Consult to Physician Routine Comment: Consulting Provider: Jair Vail call center support representative/MD group to consult: Yared Reason for consultation: ICU transfer - bad behavior Has provider been notified: Yes Attending physician on discharge: Kirby Strickland Discharging clinician: Kirby Strickland Anticipated date of transfer: 07/01/19 Receiving physician/facility: Dr Sal Woodward DS: Diagnosis Admitting Diagnosis Admitting Diagnosis: Altered mental status, unspecified Discharge Diagnosis (1) Altered mental status: Qualifiers: Altered mental status type: unspecified Qualified Code(s): R41.82 - Altered mental status, unspecified Code(s): R41.82 - Altered mental status, unspecified Status: Acute Assessment and Plan: AMS with baseline unclear on admission. 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 Repeat CT scan completed on 06/22/2019 with no changes. Evaluated by speech therapy on 06/22/2019 with no specific difficulties noted. Patient became more belligerent and threatening on the evening on 06/24/19. He required Benadryl, Ativan and Haldol. He ultimately was given ketamine and placed on Precedex drip. Precedex was weaned off on the morning of 06/25/19 but required precedex again that evening. Seroquel started which may be helping. Precedex weaned off the morning of 06/26/19 and has been off since. He did require Haldol and Ativan intermittently but usually only at night. (2) Suicidal ideation: Code(s): R45.851 - Suicidal ideations Status: Acute Assessment and Plan: Patient transferred ICU very early on 06/20/19 after issues just before midnight on 06/19/19 during which time he told nurse Get a gun, I will kill myself. Just kill me. . Has subsequently denied suicidal thoughts. Was evaluated by Crisis with recommendation for involuntary inpatient psychiatric treatment. Since then, patient became more belligerent and agitated requiring sedation/antipsychotics intermittently at times. We continued suicide precautions. Crisis felt patient could go home and safety contract signed but patietn still belligerent and agitated at times and did require Ativan and Haldol last night so it was felt patient was not a safe discharge. Placement arranged and patient transferred to a psychiatric facility (3) Hypertension: Qualifiers: Hypertension type: essential hypertension Qualified Code(s): I10 - Essential (primary) hypertension Code(s): I10 - Essential (primary) hypertension Status: Acute Assessment and Plan: Blood pressure reviewed daily. Blood pressure stable and well controlled. Patient currently on amlodipine and metoprolol with parameters in place. Continue to monitor. (4) History of alcohol abuse: Code(s): F10.11 - Alcohol abuse, in remission Status: Acute Assessment and Plan: Reported history but has been at [facility] for 10 days prior to presentation. Patient agitated at times still. Do not feel patient with signs of withdrawal. Treated with thiamine and Folate. (5) History of substance abuse: Code(s): F19.11 - Other psychoactive substance abuse, in remission Status: Acute Assessment and Plan: Reported history. Toxicol
[2019-07-01] MEDS: HALOPERIDOL LACTATE 5 MG/ML VIAL 10 MG IM ×2 (17:41→23:30)
[2019-07-01 20:00] VITALS: BP 158/95; PULSE 81; RESP 18; TEMP 36.4; O2SAT 97
[2019-07-02] MEDS: LORAZEPAM INJ 2 MG/ML VIAL 1 MG IV PUSH (00:43)
--- NOTE | 2019-07-02 03:32 | PC.NURSE ---
07/01/19 at 0320: Patient transferred via [facility] to [facility]. All belongings accounted for and sent with patient.
[2019-07-25 10:47] LABS: Glucose Point of Care 128 (65-105)
== END 2019-07-02 03:20 | DRG 861 ==
LOC: ANHED 19:07 → ANH3MEDSUR 19:32 → ANHICU 06-20 01:33
PROVIDERS: Family Medicine; Hospitalist; Internal Medicine; Admitting Provider Internal Medicine; Emergency Provider Emergency Medicine; Visit Provider Internal Medicine
DX: R41.82 Altered mental status, unspecified (principal); F19.11 Other psychoactive substance abuse, in remission; R47.02 Dysphasia; R45.851 Suicidal ideations; I10 Essential (primary) hypertension; R45.1 Restlessness and agitation; Z78.1 Physical restraint status; N17.9 Acute kidney failure, unspecified; F10.11 Alcohol abuse, in remission; I69.351 Hemiplegia and hemiparesis following cerebral infarction affecting right dominant side
CPT/HCPCS: 36415; 70450; 80048; 80053; 80061; 80307; 81001; 82140; 82550; 83735; 84100; 84443; 85025; 85027; 87081; 87086; 92523; 93005; 93880; 96361; 96372; 96374; 96375; 96376; 99285; A9270; G0378; G0379; J0360; J1200; J1630; J1644; J2060; J7030; J7120